=== PATIENT | female | born 1965 | race Caucasian/White ===

== ENCOUNTER 2017-08-12 12:15 | Emergency (ER) | payer MEDICARE ==
[~2017-08-12] VITALS: Ht 167.6 cm; Wt 77.1 kg
--- NOTE | 2017-08-12 14:01 | Diagnostic Imaging Report ---
PROCEDURE:X-RAY RIGHT ANKLE, COMPLETE TECHNIQUE: INDICATION: COMPARISON:None. FINDINGS: No acute fracture or dislocation of the right ankle. Soft tissue calcifications, overlying anterior to the tibia, on lateral view, are likely phleboliths. More coarse calcifications posterior to the ankle, may represent Os trigonum (the more superior calcification could represent Achilles tendon calcification). CONCLUSION: No acute fracture or dislocation of the right ankle. Dictated by: Guzman Bang M.D. on 08/12/2017 at 14:03 Electronically approved by: Guzman Bang M.D. on 08/12/2017 at 14:03
--- NOTE | 2017-08-12 14:04 | Diagnostic Imaging Report ---
PROCEDURE:X-RAY RIGHT LOWER LEG COMPARISON:None. INDICATIONS:RIGHT ANKLE PAIN FINDINGS: There are no fractures, dislocations, lytic or blastic lesions. The bones are well-mineralized. The soft-tissues are unremarkable except for distal leg calcifications, which were described on the same day ankle xray. CONCLUSION: No acute fracture or dislocation of the right tibia/fibula. Dictated by: Guzman Bang M.D. on 08/12/2017 at 14:07 Electronically approved by: Guzman Bang M.D. on 08/12/2017 at 14:07
[2017-08-12] MEDS ORDERED: IBUPROFEN 400 MG TAB PO ONE (15:45)
--- NOTE | 2017-08-12 17:03 | Diagnostic Imaging Report ---
PROCEDURE:X-RAY RIGHT FOOT, COMPLETE COMPARISON:None. INDICATIONS:RIGHT ANKLE PAIN, NO TRAUMA FINDINGS: There are no fractures, dislocations, lytic or blastic lesions. The bones are well-mineralized. Dorsal forefoot soft tissue swelling. Incidentally seen os trigonum. CONCLUSION: No acute fracture or dislocation of the right foot. Dictated by: Guzman aBng M.D. on 08/12/2017 at 17:06 Electronically approved by: Guzman Bang M.D. on 08/12/2017 at 17:06
== END 2017-08-12 18:31 | disposition home or self-care (01) ==
LOC: ER 12:15
DX: S93.401A Sprain of unspecified ligament of right ankle, initial encounter (principal); M25.561 Pain in right knee; S83.91XA Sprain of unspecified site of right knee, initial encounter; X50.1XXA Overexertion from prolonged static or awkward postures, initial encounter; Y92.218 Other school as the place of occurrence of the external cause
CPT/HCPCS: 99283

== ENCOUNTER 2020-01-09 15:21 | Inpatient (IN) | payer MEDICARE ==
[~2020-01-09] VITALS: Ht 167.6 cm; Wt 77.1 kg
[~2020-01-09 15:21] MED LIST: DEXAMETHASONE SOD PHOS INJ 4 MG/ML VIAL ONE; EPHEDRINE SULFATE INJ 50 MG/ML VIAL ONE; FENTANYL CITRATE/PF 100MCG/2 ML INJ ONE; LIDOCAINE HCL 2% LOCAL INJ 5 ML SDV VIAL INJ ONE; METOCLOPRAMIDE HCL 10 MG/2ML VIAL ONE; MIDAZOLAM HCL 2 MG/2 ML VIAL ONE; ONDANSETRON HCL INJ 2MG/ML 2ML 2 MG/ML VIAL ONE; PROPOFOL IV EMULSION 10 MG/ML 20 ML VIAL ONE; ROCURONIUM BROMIDE 10 MG/ML 5ML VIAL IV ONE; SEVOFLURANE INHAL SOLN 250 ML PEN BTL ONE; SUCCINYLCHOLINE CHLORIDE 20 MG/ML 10ML VIAL ONE
--- OUTSIDE RECORDS SUMMARY | 2020-01-09 16:08 | XMS REPORT | Continuity of Care Document ---
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) Active Problem 03/16/2019 Medical Group Overweight (finding) Active Problem 03/16/2019 Medical [facility] Patient encounter status (finding) Active Problem [facility] Group Screening status (finding) Act deb [facility] [place] Urge incontinence of urine (finding) Active Problem [facility] Urinary incontinence (finding) Resolved Problem Medical [facility] [place] Vaccination required (finding) Active Problem [facility] [place] Weight decreased (finding) Res olved Problem [facility] [place] Hearing loss (finding) Active Problem 10/19/2018 [facility] [place] 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 Problem 10/19/2018 [facility] [place] Body mass index index 25-29 - overweight (finding) Active Problem 05/07/2018 [facility] [place] Impacted cerumen (disorder) Ac tive Problem Medical [facility] Tuberculosis screening status (finding) Active Problem 05/07/2018 [facility] [place] Occult blood in stools (disorder) Active Problem [facility] Medications Medication Details Route Status Patient Instructions Ordering Provider Order Date Source Depo-Provera 400 mg, IM, 0 Ref ill(s) Active 09/16/2018 [facility] Surfak Stool Softener 240 mg, PO, Daily, 0 Refill(s) Active 10/15/2017 [facility] cranberry oral tablet 2 tabs, BID, 0 Refill(s) Active 10/15/2017 [facility] Vitamin C 500 mg oral tablet 5 00 mg = 1 tab, PO, Daily, # 30 tab, 0 Refill(s) Active 10/15/2017 [facility] Allergies, Adverse Reactions, Alerts Substance Category Reaction Severity Reaction type Status Date Reported Comments Source No Known Medication Allergies Assertion Drug aller gy Medical Group Immunizations Immunization Date Given Site Status Last Updated Comments Source influenza virus vaccine, inactivated 04/25/2016 Left Deltoid completed [facility] [place] influenza virus vaccine, inactivated 12/21/2014 Left Deltoid completed [facility] [place] Hx influenza vaccine-unspecified<sup>5</sup> 02/16/2014 Right Deltoid completed GE Result Comment: fluzone (qu adrivalent) no preservative (>3 yrs.) [[id number]]. Migrated from OBS ; Data migrated from [employer] on 04/26/2015. Medical Group Hx influenza vaccine-unspecified<sup>2</sup> 02/16/2014 Right Deltoid completed GE Result Comment: fluzone (quadrivalent) no preservative (>3 yrs.) [[id number]]. Migrated from OBS ; Data migrated from [employer] on 04/26/2015. [facility] [place] influenza virus vaccine, inactivated<sup>1</sup> 01/01/2013 Right Deltoid completed GE Result Comment: fluzone (>3 yrs.) [[id number]]. Migrated from OBS ; Data migrated from [employer] on 04/26/2015. Medical Group influenza virus vaccine, inactivated<sup>3</sup> 01/01/2013 Right Deltoid completed GE Result Comment: fluzone (>3 yrs.) [[id number]]. Migrated from OBS ; Data migrated from [employer] on 04/26/2015. [facility] [place] influenza virus vaccine, inactivated<sup>2</sup> 02/12/2011 completed GE Result Comment: fluvirin pr eservative free (>3 yrs.) [ctm178]. Migrated from OBS ; Data migrated from [employer] on 04/26/2015. Medical Group influenza virus vaccine, inactivated<sup>4</sup> 02/12/2011 completed GE Result Comment: fluvirin pr eservative free (>3 yrs.) [ilr740]. Migrated from OBS ; Data migrated from [employer] on 04/26/2015. [facility] [place] influenza virus vaccine, inactivated<sup>3</sup> 12/21/2009 completed GE Result Comment: fluvirin pr eservative free (>3 yrs.) [[id number]]. Migrated from OBS ; Data migrated from [employer] on 04/26/2015. Medical Group influenza virus vaccine, inactivated<sup>5</sup> 12/21/2009 completed GE Result Comment: fluvirin pr eservative free (>3 yrs.) [[id number]]. Migrated from OBS ; Data migrated from [employer] on 04/26/2015. [facility] influenza virus vaccine, inactivated<sup>4</sup> 02/14/2009 completed GE Result Comment: fluvirin pr eservative free (>3 yrs.) [stw058]. Migrated from OBS ; Data migrated from [employer] on 04/26/2015. Medical Group influenza virus vaccine, inactivated<sup>6</sup> 02/14/2009 completed GE Result Comment: fluvirin pr eservative free (>3 yrs.) [[id number]]. Migrated from OBS ; Data migrated from [employer] on 04/26/2015. [facility] diphtheria/pertussis, acel/tetanus adult<sup>6</sup> 10/11/2008 completed GE Result Comment: boostrix [c vx115]. Migrated from OBS ; Data migrated from [employer] on 04/26/2015. Medical Group diphtheria/pertussis, acel/tetanus adult<sup>1</sup> 10/11/2008 completed GE Result Comment: boostrix [c vx115]. Migrated from OBS ; Data migrated from [employer] on 04/26/2015. [facility] [place] Results No Data Provided for This Section Pathology Reports No Data Provided for This Section Diagnostic Reports Report Value Date Source Chest 2 views DX EXAM: Chest 2 views DX HISTORY: screening pulmonary tb COMPARISON: None The heart size is normal and the lungs are clear. There is no pleural effusion or pneumothorax. No gross skeletal abnormality. IMPRESSION: No acute abnormality. 04/30/2016 [facility] [place] Consultation Notes No Data Provided for This Section Discharge Summaries No Data Provided for This Section History and Physicals No Data Provided for This Section Vital Signs Vital Sign Value Date Comments Source BMI Calculated 27.9 10/27/2018 Medical Group Weight 78.409 10/27/2018 Medical Group Height 167.64 cm 10/27/2018 Medical Group Heart Rate 81 10/27/2018 Medical Group Systolic (mm Hg) 130 10/27/2018 Medical Group Diastolic (mm Hg) 83 10/27/2018 Medical Group Temperature Oral (F) 97.9 F 10/27/2018 Medical Group Respitory Rate 16 10/27/2018 Medical Group BMI Calculated 27.42 09/16/2018 [facility] Weight 77.045 09/16/2018 [facility] Height 167.64 cm 09/16/2018 [facility] Temperature Oral (F) 96.8 F 09/16/2018 Medical Group Respitory Rate 16 09/16/2018 Medical Group Heart Rate 97 09/16/2018 [facility] Group Systolic (mm Hg) 122 09/16/2018 Medical Group Diastolic (mm Hg) 77 09/16/2018 Medical Group BMI Calculated 28.22 10/15/2017 Medical Group Height 167.64 cm 10/15/2017 [facility] Group Heart Rate 68 10/15/2017 Medical Group Respitory Rate 16 10/15/2017 [facility] Group Systolic (mm Hg) 128 10/15/2017 Medical Group Diastolic (mm Hg) 86 10/15/2017 [facility] Group Temperature Oral (F) 96.6 F 10/15/2017 [facility] Group Weight 79.318 10/15/2017 Medical Group Encounters Location Location Details Encounter Type Encounter Number Reason For Visit Attending Provider ADM Date DC Date Status Source Outpatient [id number] MARIZOL SHAW 01/19/[address] [facility] Outpatient [id number] MARIZOL SHAW 03/11/2015 Active [facility] Outpatient [id number] MARIZOL SHAW 04/25/2016 Active [facility] [place] [facility] [id number] Marizol Shaw 04/30/2016 05/01/2016 [facility] [place] Outpatient [id number] MARIZOL SHAW 12/31/2016 Active [facility] Outpatient [id number] MARIZOL SHAW 10/15/2017 [facility] Primary Care [facility] Outpatient [id number] Marizol Shaw 10/15/2017 10/16/2017 Medical [facility] Primary [facility] Phone Message [id number] 10/17/2017 10/19/2017 Medical [facility] Outpatient [id number] Marizol Shaw 09/16/2018 [facility] Primary Care [facility] Outpatient [id number] Marizol Shaw 09/16/2018 09/17/2018 Medical [facility] Primary [facility] Phone Message [id number] 10/15/2018 10/17/2018 Medical [facility] Outpatient [id number] Marizol Shaw 10/27/2018 [facility] Primary Care [facility] Outpatient [id number] Marizol Shaw 10/27/2018 10/28/2018 Medical [facility] Primary [facility] Between Visit [id number] 10/29/2018 10/30/2018 Medical [facility] Primary [facility] Between Visit [id number] 10/29/2018 10/30/2018 Medical [facility] Primary Care [facility] Phone Message [id number] 03/13/2019 03/15/2019 Medical [facility] Procedures Procedure Code Date Perfomer Comments Source Screening mammography of bilateral breasts<sup>1</sup> [id number] 11/14/2018 Patient was instructed to bring all medi cations that he takes to the office so we can update his list. Medical Group Removal impacted cerumen using irrigatio n/lavage, unilateral [id number] 10/15/2017 Medical [facility] Assessment and Plan No Data Provided for This Section Plan of Care No Data Provided for This Section Social History Social History Date Source Social History TypeResponse Substance Abuse Use: None. Exercise 1 Employment/School Work/School description: Disabled. Alcohol Never Smoking Status Never smoker; Exposure to Tobacco Smoke None; Cigarette Smoking Last 365 Days No; Reg Smoking Cessation Counseling No 1none 12/21/2014 ROXY Ferrer Social History TypeResponse Alcohol Never Employment/School Work/School description: Disabled. Exercise Exercise type: none. Substance Abuse Use: None. Smoking Status Never smoker; Exposure to Tobacco Smoke None; Cigarette Smoking Last 365 Days No; Reg Smoking Cessation Counseling No entered on: 10/27/18 12/21/2014 Medical Group Family History No Data Provided for This Section Advance Directives No Data Provided for This Section Functional Status No Data Provided for This Section
--- OUTSIDE RECORDS SUMMARY | 2020-01-09 16:09 | XMS REPORT | Continuity of Care Document ---
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 [facility] [place] Problem Active 2013-01-01 00:00:00 2018-10-19 00:05:13 Jace Hernandez Urinary incontinence (finding) Urinary incontinence (finding) Resolved Problem 03/16/2019 [facility] [place] Problem Resolved 2019-03-16 23:32:24 Kamran Hernandez Weight decreased (finding) Roly ght decreased (finding) Resolved Problem 03/16/2019 [facility] [place] Problem Resolved 2019-03-16 23:32:24 Jace Hernandez Breast neoplasm screening status (finding) Breast neoplasm screening status (finding) Active Problem 03/16/2019 Medical [facility] [place] Problem Active 2019-03-16 23:32:24 [facility] Medical examinations/reports status (finding) Medical examinations/reports status (finding) Active Problem 03/16/2019 Medical [facility] [place] Problem Active 2019-03-16 23:32:24 [facility] David 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) Active Problem 03/16/2019 Medical Group Problem Active 2019-03-16 23:32:24 [facility] Overweight (finding) Over weight (finding) Active Problem 03/16/2019 Medical Group Problem Active 2019-03-16 [facility]:32:[facility] status (finding) Patient encounter status (finding) Active Problem 03/16/2019 [facility] Group Problem Active 2019-03-16 23:32:24 [facility] David Screening status (finding) Scr eening status (finding) Active Problem 03/16/2019 [facility], [facility] [place] Problem Ac tive 2019-03-16 23:32:24 [facility] vanessa Urge incontinence of urine (finding) Urge incontinence of urine (finding) Active Problem 03/16/2019 Medical Group Problem Active 2019-03-16 23:32:24 [facility] David Vaccination required (finding) Vaccination required (finding) Active Problem 03/16/2019 [facility] [place] Problem Active 2019-03-16 23:32:24 Kamran Hernandez Hearing loss (finding) Hear ing loss (finding) Active Problem 10/19/2018 [facility] [place] Problem Active 2018-10-19 00:05:13 Jace Hernandez Contracture of joint of hand (disorder) 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 Problem 10/19/2018 Medical [facility] [place] Problem Active 2018-10-19 00:05:13 Ye Hernandez Body mass index index 25-29 - overweight (finding) Body mass index index 25-29 - overweight (finding) Active Problem 05/07/2018 [facility], [facility] [place] Problem Active 2018-05-07 15: 18:54 [facility] David Impacted cerumen (disorder) Im pacted cerumen (disorder) Active Problem 05/07/2018 Medical Group Problem Active 2018-05-07 15:18:54 Jace Hernandez Tuberculosis screening status (finding) Tuberculosis screening status (finding) Active Problem 05/07/2018 Medical Group, ROXY Salcedo Problem Active 2018-05-07 15:18:54 Ye Hernandez Occult blood in stools (disorder) Occult blood in stools (disorder) Active Problem 03/16/2019 Medical Group Problem Active 2019-03-16 23:32:24 Jace Hernandez Allergies, Adverse Reactions, Alerts Allergy Name Allergy Type Status Severity Reaction(s) Onset Date Inacti ve Date Treating Clinician Comments Source No Known Contrast Allergies DA Active U 2007-06-27 00:00: 00 [facility] No Known Drug Allergies DA Active U 2007-06-27 00:00:00 [facility] No Known Food Allergies DA Active U 2007-06-27 00:00:00 [facility] No Known Other Allergies DA Active U 2007-06-27 00:00:00 [facility] No Known Medication Allergies No Known Medication Allergies Active Jace Hernandez Social History Social Habit Start Date Stop Date Quantity Comments Source Social History 2014-12-21 21:57:09 2014-12-21 21:57:09 Jace Hernandez Medications Ordered Medication Name Filled Medication Name Start Date Stop Da te Current Medication? Ordering Clinician Indication Dosage Frequency Signature (SIG) Comments Components Source Depo-Provera 2018-09-16 16:21:00 Yes 400 mg, IM, 0 Refill(s) Jace Hernandez Surfak Stool Softener 2017-10-15 16:20:00 Yes 240 mg, PO, Daily, 0 Refill(s) Jace Hernandez cranberry oral tablet 2017-10-15 16:20:00 Yes 2 tabs, BID, 0 Refill(s) Jace Hernandez Vitamin C 500 mg oral tablet 2017-10-15 16:20:00 Yes 500 mg = 1 tab, PO, Daily, # 30 tab, 0 Refill(s) Kimberly Hernandez Vital Signs Vital Name Observation Time Observation Value Comments Source BMI Calculated 2018-10-27 13:07:00 Gregory Shah Weight 2018-10-27 13:07:00 Jace Hernandez Height 2018-10-27 13:07:00 167.64 cm Jace Hernandez Heart Rate 2018-10-27 13:07:00 Jace Hernandez Systolic (mm Hg) 2018-10-27 13:07:00 Ye rial [facility] Diastolic (mm Hg) 2018-10-27 13:07:00 [facility] Temperature Oral (F) 2018-10-27 13:07:00 97.9 F [facility] Respitory Rate 2018-10-27 13:07:00 [facility] BMI Calculated 2018-09-16 16:17:00 [facility] Weight 2018-09-16 16:17:00 [facility] Height 2018-09-16 16:17:00 167.64 cm [facility] Temperature Oral (F) 2018-09-16 16:17:00 96.8 F [facility] Respitory Rate 2018-09-16 16:17:00 [facility] Heart Rate 2018-09-16 16:17:00 [facility] Systolic (mm Hg) 2018-09-16 16:17:00 Ye rial [facility] Diastolic (mm Hg) 2018-09-16 16:17:00 Mem [facility] BMI Calculated 2017-10-15 16:07:00 [facility] Height 2017-10-15 16:07:00 167.64 cm [facility] Heart Rate 2017-10-15 16:07:00 [facility] Respitory Rate 2017-10-15 16:07:00 [facility] Systolic (mm Hg) 2017-10-15 16:07:00 Ye rial [facility] Diastolic (mm Hg) 2017-10-15 16:07:00 Mem orial [facility] Temperature Oral (F) 2017-10-15 16:07:00 96.6 F [facility] Weight 2017-10-15 16:07:00 [facility] Procedures Procedure Date / Time Performed Performing Clinician [facility] e Screening mammography of bilateral breasts<sup>1</sup> 2018-10-24 3 05:00:00 [facility] Removal impacted cerumen using irrigation/lavage, unil ateral 2017-10-15 17:16:00 [facility] Encounters Start Date/Time End Date/Time Encounter Type Admission Type Att[facility] Care Department Encounter ID Source 2019-03-13 08:27:51 2019-03-14 23:59:59 Outpatient [facility] [id number] 2018-10-29 10:26:51 2018-10-30 10:26:51 Outpatient [facility] [id number] 2018-10-29 10:26:26 2018-10-30 10:26:26 Outpatient [facility] [id number] 2018-10-27 08:15:00 2018-10-27 23:59:59 Outpatient S Marizol goelacion [facility] MG [id number] 2018-10-15 10:18:09 2018-10-16 23:59:59 Outpatient [facility] [id number] 2018-09-16 11:00:00 2018-09-16 23:59:59 Outpatient S alcedoMarizol Salvacion [facility] MG [id number] 2017-10-17 12:39:00 2017-10-18 23:59:59 Outpatient [facility] MG [id number] 2017-10-15 11:00:00 2017-10-15 23:59:59 Outpatient S Marizol goelacion [facility] [id number] 2017-10-15 11:00:00 2017-10-15 23:59:59 Outpatient S Marizol ogel [facility] [id number] 2017-08-12 12:15:00 2017-08-12 18:31:00 Departed Emergency Room 1 GREG APPLE [facility] [id number] [facility] 2016-04-30 12:59:00 2016-04-30 23:59:00 Outpatient S Marizol goel [facility] [id number] Results Test Description Test Time Test Comments Results Result Comments Source FOOT RIGHT [place] [address] Patient Name: ANJEL PATTERSON MR #: [id number] : 1965 Age/Sex: 51/F Req #: [id number] Adm Physician: Ordered by: GREG APPLE MD Report #: [id number] Location: ER Room/Bed: Procedure: DX/FOOT RIGHT COMPLETE Exam Date: 08/12/17 Exam Time: 1615 REPORT STATUS: Signed PROCEDURE: X-RAY RIGHT FOOT, COMPLETE COMPARISON: None. INDICATIONS: RIGHT ANKLE PAIN, NO TRAUMA FINDINGS: There are no fractures, dislocations, lytic or blastic lesions. The bones are well-mineralized. Dorsal forefoot soft tissue swelling. Incidentally seen os trigonum. CONCLUSION: No acute fracture or dislocation of the right foot. Dictated by: Guzman Jin M.D. on 08/12/2017 at 17:06 Electronically approved by: Guzman Jin M.D. on 08/12/2017 at 17:06 Dictated By: GUZMAN JIN MD 05 Transcribed By: AP on 08/12/171705 COPY TO: GREG APPLE MD ANKLE 3 + VIEWS RIGHT [place] [address] Patient Name: ANJEL PATTERSON MR #: [id number] : 1965 Age/Sex: 51/F Req #: [id number] Adm Physician: Ordered by: GREG APPLE MD Report #: [id number] Location: ER Room/Bed: Procedure: DX/ANKLE 3 + VIEWS RIGHT Exam Date: 08/12/17 Exam Time: 1330 REPORT STATUS: Signed PROCEDURE: X-RAY RIGHT ANKLE, COMPLETE TECHNIQUE: INDICATION: COMPARISON: None. FINDINGS: No acute fracture or dislocation of the right ankle. Soft tissue calcifications, overlying anterior to the tibia, on lateral view, are likely phleboliths. More coarse calcifications posterior to the ankle, may represent Os trigonum (the more superior calcification could represent Achilles tendon calcification). CONCLUSION: No acute fracture or dislocation of the right ankle. Dictated by: Guzman Jin M.D. on 08/12/2017 at 14:03 Electronically approved by: Guzman Jin M.D. on 08/12/2017 at 14:03 Dictated By: GUZMAN JIN MD 02 Transcribed By: AP on 08/12/171402 COPY TO: GREG APPLE MD LOWER LEG RIGHT [place] [address] Patient Name: ANJEL PATTERSON MR #: [id number] : 1965 Age/Sex: 51/F Req #: [id number] [facility] Physician: Ordered by: GREG APPLE MD Report #: [id number] Location: ER Room/Bed: Procedure: [id number] DX/LOWER LEG RIGHT Exam Date: 08/12/17 Exam Time: 1329 REPORT STATUS: Signed PROCEDURE: X-RAY RIGHT LOWER LEG COMPARISON: None. INDICATIONS: RIGHT ANKLE PAIN FINDINGS: There are no fractures, dislocations, lytic or blastic lesions. The bones are well-mineralized. The soft-tissues are unremarkable except for distal leg calcifications, which were described on the same day ankle xray. CONCLUSION: No acute fracture or dislocation of the right tibia/fibula. Dictated by: Guzman Jin M.D. on 08/12/2017 at 14:07 Electronically approved by: Guzman Jin M.D. on 08/12/2017 at 14:07 Dictated By: GUZMAN JIN MD 06 Transcribed By: AP on 08/12/171406 COPY TO: GREG APPLE MD
[2020-01-09] MEDS ORDERED: SODIUM CHLORIDE 0.9% 1000ML 1,000 ML IV STA (16:37)
[2020-01-09] MEDS ORDERED: PANTOPRAZOLE 40 MG 10ML VIAL IV ONE (16:37)
[2020-01-09 17:12] LABS: BASOPHILS # (AUTO) 0.1 (0.0-0.1); BASOPHILS % 0.5 % (0.0-1.0); EOSINOPHILS # (AUTO) 0.3 (0.0-0.4); EOSINOPHILS % 1.4 % (0.0-6.0); HEMATOCRIT 45.3 % (34.2-44.1); LYMPHOCYTES % 9.3 % (18.0-39.1); MEAN CORPUSCULAR HEMOGLOBIN 29.1 pg (28-32); MEAN CORPUSCULAR HGB CONC 33.1 g/dL (31-35); MEAN CORPUSCULAR VOLUME 87.8 fL (81-99); MONOCYTES # (AUTO) 1.5 (0.2-0.8); MONOCYTES % 6.8 % (4.4-11.3); NEUTROPHILS # (AUTO) 17.6 (2.1-6.9); NEUTROPHILS % 81.6 % (38.7-80.0); PLATELET COUNT 430 x10e3/uL (140-360); RED BLOOD COUNT 5.16 x10e6/uL (3.6-5.1); RED CELL DISTRIBUTION WIDTH 12.8 % (11.7-14.4)
[2020-01-09 17:24] LABS: INR 0.92; PROTHROMBIN TIME 12.8 seconds (11.9-14.5)
[2020-01-09 17:32] LABS: ALANINE AMINOTRANSFERASE 58 IU/L (0-55); ALBUMIN 4.4 g/dL (3.5-5.0); ALBUMIN/GLOBULIN RATIO 1.2 (0.8-2.0); ALKALINE PHOSPHATASE 91 IU/L (40-150); ANION GAP 17.8 mmol/L (8-16); BLOOD UREA NITROGEN 10 mg/dL (7-26); BUN/CREATININE RATIO 11 (6-25); CALCIUM 9.7 mg/dL (8.4-10.2); CARBON DIOXIDE 23 mmol/L (22-29); CHLORIDE 104 mmol/L (98-107); CREATINE KINASE 72 IU/L (29-168); CREATININE, SERUM 0.88 mg/dL (0.57-1.11); EST GLOMERULAR FILTRATION RATE > 60 ML/MIN (60-); GLUCOSE 162 mg/dL (74-118); POTASSIUM 3.8 mmol/L (3.5-5.1); SODIUM 141 mmol/L (136-145)
--- NOTE | 2020-01-09 17:32 | Diagnostic Imaging Report ---
EXAMINATION: CHEST SINGLE (PORTABLE) INDICATION: CP, ? ESOPH FB COMPARISON: None FINDINGS: TUBES and LINES: None. LUNGS: Lungs are well inflated. There is no evidence of pneumonia or pulmonary edema. Minimal patchy bibasilar opacities, likely atelectasis. PLEURA: No pleural effusion or pneumothorax. HEART AND MEDIASTINUM: The cardiomediastinal silhouette is unremarkable. There is a 1.2 cm linear radiodensity overlying the left upper mediastinum. Atherosclerotic vascular calcifications. BONES AND SOFT TISSUES: No acute osseous lesion. Soft tissues are unremarkable. UPPER ABDOMEN: No free air under the diaphragm. IMPRESSION: A 1.2 cm linear radiodensity overlying the left upper mediastinum may represent vascular atherosclerotic calcification versus radiodense foreign body. Suggest chest CT for further evaluation. Signed by: Dr. Yoselin Casey MD on 01/09/2020 5:29 PM
[2020-01-09] MEDS ORDERED: SODIUM CHLORIDE 0.9% 1000ML 1,000 ML IV SCH (17:45)
[2020-01-09] MEDS ORDERED: ONDANSETRON HCL INJ 2MG/ML 2ML 2 MG/ML VIAL IV PRN (17:45)
[2020-01-09] MEDS ORDERED: PIPER-TAZ 3.375 GM 50 ML ONE (17:48)
--- NOTE | 2020-01-09 17:50 | NUR ---
overlock operator at bedside questioning COVID swab as a rapid for surger as a standard of care. was informed by senior housekeeper that patient would be treated as a PUI and that rapid was declined by lab at [facility].
[2020-01-09] MEDS: PIPER-TAZ 3.375 GM 50 ML IV SCH (17:52)
--- NOTE | 2020-01-09 17:55 | NUR ---
SPOKE WITH LUCIA (OPHTHALMIC TECHNICIAN) WHO WILL SPEAK TO ZAID (LAB), REGARDING RUNNING RAPID COVID, REQUESTED BY ANESTHESIOLOGY
--- NOTE | 2020-01-09 18:14 | Emergency Department Note ---
History of Present Illnes History of Present Illness Chief Complaint: Abdominal Complaints History of Present Illness This is a 54 year old female PATIENT MENTALLY CHALLENGED AND DIFFICULT TO GET INFO FROM HER 3 DAYS AGO ATE A PIECE OF HOT DOG AND BEGAN GAGGING INTERMITTENTLY. POSITIVE NAUSEA. DRY HEAVES. FAMILY MEMBER FEELS LIKE SHE HAS SOME STILL STUCK IN HER THROAT. 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 Any updates have been documented here. Past Medical History Recent Fever: No Clinical Suspicion of Infectio: No New/Unexplained Change in Ment: No Past Medical History: Seizure Disorder Other Medical History: right spastic hemopalegic MENTALLY CHALLENGED Other Surgery: R foot and R hand Social History Smoking Cessation: Never Smoker Counseling Performed: No Alcohol Use: None Any Illegal Drug Use: No TB Exposure/Symptoms: No Physically hurt or threatened: No Family History Family history of heart diseas: No Other Last Tetanus: utd Any Pre-Existing Lines (PICC,: No Review of Systems Review of Systems Constitutional: Reports no symptoms EENTM: Reports no symptoms Cardiovascular: Reports no symptoms Respiratory: Reports no symptoms Gastrointestinal: Reports as per HPI Genitourinary: Reports no symptoms Musculoskeletal: Reports no symptoms Integumentary: Reports no symptoms Neurological: Reports no symptoms Psychological: Reports no symptoms Endocrine: Reports no symptoms Hematological/Lymphatic: Reports no symptoms Physical Exam Related Data Allergies: Coded Allergies: No Known Allergies (Unverified , 01/09/20) Triage Vital Signs Vital Signs Date Time Temp Pulse Resp B/P (MAP) Pulse Ox O2 Delivery O2 Flow Rate FiO2 01/09/20 15:28 98.6 100 18 164/83 99 Room Air Vital signs reviewed: Yes Physical Exam CONSTITUTIONAL Constitutional: Present well-developed, Present well-nourished HENT HENT: Present normocephalic, Present atraumatic, Present oropharynx clear/moist, Present nose normal HENT L/R: Present left ext ear normal, Present right ext ear normal EYES Eyes: Reports PERRL, Reports conjunctivae normal NECK Neck: Present ROM normal PULMONARY Pulmonary: Present effort normal, Present breath sounds normal CARDIOVASCULAR Cardiovascular: Present regular rhythm, Present heart sounds normal, Present capillary refill normal, Present normal rate GASTROINTESTINAL Abdominal: Present soft, Present nontender, Present bowel sounds normal GENITOURINARY Genitourinary: Present exam deferred SKIN Skin: Present warm, Present dry MUSCULOSKELETAL Musculoskeletal: Present ROM normal NEUROLOGICAL Neurological: Present alert, Present no gross motor or sensory deficits, Present other (ORIENTED TO NAME, ANSWERS SIMPLE QUESTIONS) PSYCHOLOGICAL Psychological: Present mood/affect normal, Present judgement normal Results Laboratory Result Diagram: 01/09/20 1652 01/09/202 Laboratory Laboratory Tests Test 01/09/20 17:50 01/09/20 16:52 White Blood Count 21.51 x10e3/uL (4.8-10.8) Red Blood Count 5.16 x10e6/uL (3.6-5.1) Hemoglobin 15.0 g/dL (12.0-16.0) Hematocrit 45.3 % (34.2-44.1) Mean Corpuscular Volume 87.8 fL (81-99) Mean Corpuscular Hemoglobin 29.1 pg (28-32) Mean Corpuscular Hemoglobin Concent 33.1 g/dL (31-35) Red Cell Distribution Width 12.8 % (11.7-14.4) Platelet Count 430 x10e3/uL (140-360) Neutrophils (%) (Auto) 81.6 % (38.7-80.0) Lymphocytes (%) (Auto) 9.3 % (18.0-39.1) Monocytes (%) (Auto) 6.8 % (4.4-11.3) Eosinophils (%) (Auto) 1.4 % (0.0-6.0) Basophils (%) (Auto) 0.5 % (0.0-1.0) Neutrophils # (Auto) 17.6 (2.1-6.9) Lymphocytes # (Auto) 2.0 (1.0-3.2) Monocytes # (Auto) 1.5 (0.2-0.8) Eosinophils # (Auto) 0.3 (0.0-0.4) Basophils # (Auto) 0.1 (0.0-0.1) Absolute Immature Granulocyte (auto 0.08 x10e3/uL (0-0.1) Prothrombin Time 12.8 seconds (11.9-14.5) Prothromb Time International Ratio 0.92 Activated Partial Thromboplast Time 33.0 seconds (23.8-35.5) Sodium Level 141 mmol/L (136-145) Potassium Level 3.8 mmol/L (3.5-5.1) Chloride Level 104 mmol/L (98-107) Carbon Dioxide Level 23 mmol/L (22-29) Anion Gap 17.8 mmol/L (8-16) Blood Urea Nitrogen 10 mg/dL (7-26) Creatinine 0.88 mg/dL (0.57-1.11) Estimat Glomerular Filtration Rate > 60 ML/MIN (60-) BUN/Creatinine Ratio 11 (6-25) Glucose Level 162 mg/dL (74-118) Calcium Level 9.7 mg/dL (8.4-10.2) Total Bilirubin 0.7 mg/dL (0.2-1.2) Aspartate Amino Transf (AST/SGOT) 38 IU/L (5-34) Alanine Aminotransferase (ALT/SGPT) 58 IU/L (0-55) Alkaline Phosphatase 91 IU/L (40-150) Creatine Kinase 72 IU/L (29-168) Creatine Kinase MB 1.00 ng/mL (0-5.0) Troponin I < 0.001 ng/mL (0-0.300) Total Protein 8.2 g/dL (6.5-8.1) Albumin 4.4 g/dL (3.5-5.0) Globulin 3.8 g/dL (2.3-3.5) Albumin/Globulin Ratio 1.2 (0.8-2.0) Lab results reviewed: Yes Imaging Imaging results reviewed: Yes Impressions EXAMINATION: CHEST SINGLE (PORTABLE) INDICATION: CP, ? ESOPH FB COMPARISON: None FINDINGS: TUBES and LINES: None. LUNGS: Lungs are well inflated. There is no evidence of pneumonia or pulmonary edema. Minimal patchy bibasilar opacities, likely atelectasis. PLEURA: No pleural effusion or pneumothorax. HEART AND MEDIASTINUM: The cardiomediastinal silhouette is unremarkable. There is a 1.2 cm linear radiodensity overlying the left upper mediastinum. Atherosclerotic vascular calcifications. BONES AND SOFT TISSUES: No acute osseous lesion. Soft tissues are unremarkable. UPPER ABDOMEN: No free air under the diaphragm. IMPRESSION: A 1.2 cm linear radiodensity overlying the left upper mediastinum may represent vascular atherosclerotic calcification versus radiodense foreign body. Suggest chest CT for further evaluation. Signed by: Dr. Yoselin Casey MD on 01/09/2020 5:29 PM Procedures 12 Lead ECG Interpretation ECG Interpretation : ECG: ECG 1 Motion Picture Operator: Interpreted by ED physician Date: Jan 09, 2020 Time: 16:54 Rhythm: sinus tachycardia Rate: tachycardia BPM: 122 QRS axis: normal ST segments normal: Yes T waves normal: Yes Clinical Impression: abnormal ECG Additional Comments POOR RWP Assessment & Plan Medical Decision Making MDM CLINICALLY SOUNDS LIKE ESOPH FB BUT PT WITH MR AND CANNOT ELOBORATE ON SX'S - CHECK CBC, CHEM, ECG, CARDIACS, UA/CX, CXR - EVAL FOR ESOPH FB, STEMI/NSTEMI, ELECTROLYTE ABNL, DEHYDRATION Reassessment Reassessment I CALLED DR Andres ALEGRE - WANTS TO TAKE PT FOR EGD. WILL ADMIT TO S SIS COVERING FOR PCP JOB. LEUKOCYTOSIS WAS UNEXPECTED - WILL GET BLOOD CX'S, UA/CX - GIVE ZOSYN Assessment & Plan Final Impression: (1) Leukocytosis (2) Impacted esophageal foreign body Depart Disposition: ADMITTED Last Vital Signs Date Time Temp Pulse Resp B/P (MAP) Pulse Ox O2 Delivery O2 Flow Rate FiO2 01/09/20 15:28 98.6 100 18 164/83 99 Room Air Medications in the ED Pantoprazole Sodium 40 mg ONCE ONCE IV Last administered on 01/09/20at 16:57; Admin Dose 40 MG; Start 01/09/20 at 16:37; Stop 01/09/20 at 16:42; Status DC Sodium Chloride 1,000 ml @ 0 mls/hr Q0M STAT IV Last administered on 01/09/20at 16:57; Admin Dose 1,000 MLS/HR; Start 01/09/20 at 16:37; Stop 01/09/20 at 16:40; Status DC DILMA BENAVIDES MD Jan 09, 2020 18:14
[2020-01-09] MEDS ORDERED: PANTOPRAZOLE 40 MG 10ML VIAL ONE (19:23)
[2020-01-09] MEDS ORDERED: PANTOPRAZOLE INJ 40 MG in SODIUM CHLORIDE 0.9% 50ML 50 ML IV SCH ×2 (19:45→20:30)
[2020-01-09 19:50] VITALS: BP 139/78
--- NOTE | 2020-01-09 20:05 | Operative Report ---
DATE OF PROCEDURE: 01/09/2020 SURGEON: Nakul Vergara MD PROCEDURE: EGD with foreign body removal, polypectomy, and biopsies. INDICATIONS FOR PROCEDURE: Foreign body in esophagus. MEDICATIONS: The patient was done under general endotracheal anesthesia, please see anesthesiologist's note. DESCRIPTION OF PROCEDURE: With the patient in the supine position, after induction of adequate general endotracheal anesthesia, a flexible fiberoptic Olympus gastroscope was introduced into the esophagus under direct visualization without any difficulty. A large meat bolus was noted to be lodged in the distal esophagus. It was subsequently removed with a combination of polypectomy snare, Alfredo Net, and giant biopsy forceps. The distal esophagus was ulcerated and the scope was advanced with ease into the stomach. Mucosa overlying the antrum and the body revealed some diffuse erythema and low-grade edema, and biopsies were obtained and sent to stain for H. pylori. Several hyperplastic-appearing polyps were noted in the body of the stomach and somewhat partially excised with the cold biopsy forceps. Pylorus was of normal contour and shape, it was intubated with ease and the scope was advanced all the way to the second portion of the duodenum. There was some patchy erythema noted in the duodenal bulb. The 2nd portion appeared to be within normal limits. The scope was then withdrawn back into the stomach and retroflexed and some of the meat bolus was noted in the fundus with some liquid debris in the cardia appeared to be within normal limits. The scope was then straightened out. It was subsequently withdrawn. The patient tolerated the procedure well. IMPRESSION: 1. Bolus of meat lodged in distal esophagus, removed piecemeal per polypectomy snare, Alfredo Net, and giant biopsy forceps. 2. Ulcerated distal esophagitis. 3. Gastritis, biopsied. Biopsies sent to stain for Helicobacter pylori. 4. Gastric polyps, body, several, hyperplastic appearing, some partially excised with the cold biopsy forceps. 5. Duodenitis, bulb, mild. PLAN: Follow up histology. Initiate Protonix 40 mg IV b.i.d. The patient will need a followup EGD in 2-3 weeks to re-evaluate and dilate esophagus. Nakul Vergara MD [facility]/MODL /[id number] cc: Oneyda Holloway MD
--- OUTSIDE RECORDS SUMMARY | 2020-01-09 20:21 | XMS REPORT | Continuity of Care Document ---
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) Active Problem 03/16/2019 [facility] Overweight (finding) Active Problem 03/16/2019 [facility] Patient encounter status (finding) Active Problem [facility] Screening status (finding) Act deb [facility] [place] Urge incontinence of urine (finding) Active Problem [facility] Urinary incontinence (finding) Resolved Problem [facility] [place] Vaccination required (finding) Active Problem [facility] [place] Weight decreased (finding) Res olved Problem [facility] [place] Hearing loss (finding) Active Problem 10/19/2018 [facility] [place] 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 Problem 10/19/2018 [facility] [place] Body mass index index 25-29 - overweight (finding) Active Problem 05/07/2018 [facility] [place] Impacted cerumen (disorder) Ac tive Problem [facility] Tuberculosis screening status (finding) Active Problem 05/07/2018 [facility] [place] Occult blood in stools (disorder) Active Problem [facility] Medications Medication Details Route Status Patient Instructions Ordering Provider Order Date Source Depo-Provera 400 mg, IM, 0 Ref ill(s) Active 09/16/2018 [facility] [place] Stool Softener 240 mg, PO, Daily, 0 Refill(s) Active 10/15/2017 [facility] cranberry oral tablet 2 tabs, BID, 0 Refill(s) Active 10/15/2017 [facility] Vitamin C 500 mg oral tablet 5 00 mg = 1 tab, PO, Daily, # 30 tab, 0 Refill(s) Active 10/15/2017 [facility] Allergies, Adverse Reactions, Alerts Substance Category Reaction Severity Reaction type Status Date Reported Comments Source No Known Medication Allergies Assertion Drug aller gy [facility] Immunizations Immunization Date Given Site Status Last Updated Comments Source influenza virus vaccine, inactivated 04/25/2016 Left Deltoid completed [facility] [place] influenza virus vaccine, inactivated 12/21/2014 Left Deltoid completed Jos[facility] [place] Hx influenza vaccine-unspecified<sup>5</sup> 02/16/2014 Right Deltoid completed GE Result Comment: fluzone (qu adrivalent) no preservative (>3 yrs.) [[id number]]. Migrated from OBS ; Data migrated from [employer] on 04/26/2015. [facility] Hx influenza vaccine-unspecified<sup>2</sup> 02/16/2014 Right Deltoid completed GE Result Comment: fluzone (quadrivalent) no preservative (>3 yrs.) [[id number]]. Migrated from OBS ; Data migrated from [employer] on 04/26/2015. [facility] [place] influenza virus vaccine, inactivated<sup>1</sup> 01/01/2013 Right Deltoid completed GE Result Comment: fluzone (>3 yrs.) [[id number]]. Migrated from OBS ; Data migrated from [employer] on 04/26/2015. [facility] influenza virus vaccine, inactivated<sup>3</sup> 01/01/2013 Right Deltoid completed GE Result Comment: fluzone (>3 yrs.) [[id number]]. Migrated from OBS ; Data migrated from [employer] on 04/26/2015. [facility] [place] influenza virus vaccine, inactivated<sup>2</sup> 02/12/2011 completed GE Result Comment: fluvirin pr eservative free (>3 yrs.) [[id number]]. Migrated from OBS ; Data migrated from [employer] on 04/26/2015. [facility] influenza virus vaccine, inactivated<sup>4</sup> 02/12/2011 completed GE Result Comment: fluvirin pr eservative free (>3 yrs.) [[id number]]. Migrated from OBS ; Data migrated from [employer] on 04/26/2015. [facility] [place] influenza virus vaccine, inactivated<sup>3</sup> 12/21/2009 completed GE Result Comment: fluvirin pr eservative free (>3 yrs.) [[id number]]. Migrated from OBS ; Data migrated from [employer] on 04/26/2015. [facility] influenza virus vaccine, inactivated<sup>5</sup> 12/21/2009 completed GE Result Comment: fluvirin pr eservative free (>3 yrs.) [[id number]]. Migrated from OBS ; Data migrated from [employer] on 04/26/2015. [facility] influenza virus vaccine, inactivated<sup>4</sup> 02/14/2009 completed GE Result Comment: fluvirin pr eservative free (>3 yrs.) [[id number]]. Migrated from OBS ; Data migrated from [employer] on 04/26/2015. [facility] influenza virus vaccine, inactivated<sup>6</sup> 02/14/2009 completed GE Result Comment: fluvirin pr eservative free (>3 yrs.) [[id number]]. Migrated from OBS ; Data migrated from [employer] on 04/26/2015. [facility] diphtheria/pertussis, acel/tetanus adult<sup>6</sup> 10/11/2008 completed GE Result Comment: boostrix [c [id number]]. Migrated from OBS ; Data migrated from [employer] on 04/26/2015. [facility] diphtheria/pertussis, acel/tetanus adult<sup>1</sup> 10/11/2008 completed GE Result Comment: boostrix [c [id number]]. Migrated from OBS ; Data migrated from [employer] on 04/26/2015. [facility] [place] Results No Data Provided for This Section Pathology Reports No Data Provided for This Section Diagnostic Reports Report Value Date Source Chest 2 views DX EXAM: Chest 2 views DX HISTORY: screening pulmonary tb COMPARISON: None The heart size is normal and the lungs are clear. There is no pleural effusion or pneumothorax. No gross skeletal abnormality. IMPRESSION: No acute abnormality. 04/30/2016 [facility] [place] Consultation Notes No Data Provided for This [...] ADM Date DC Date Status Source Outpatient [id number] MARIZOL SHAW 01/19/2015 [facility] Outpatient [id number] MARIZOL SHAW 03/11/2015 Active [facility] Outpatient [id number] MARIZOL SHAW 04/25/2016 Active [facility] [place] [facility] [id number] Marizol Shaw 04/30/2016 05/01/2016 [facility] [place] Outpatient [id number] MARIZOL SHAW 12/31/2016 Active [facility] Outpatient [id number] MARIZOL SHAW 10/15/2017 [facility] Outpatient [id number] Marizol Shaw 10/15/2017 10/16/2017 Medical [facility] Phone Message [id number] 10/17/2017 10/19/2017 Medical [facility] Outpatient [id number] Marizol Shaw 09/16/2018 [facility] Primary [facility] Outpatient [id number] Marizol Shaw 09/16/2018 09/17/2018 Medical [facility] Phone Message [id number] 10/15/2018 10/17/2018 [facility] Outpatient [id number] Marizol Shaw 10/27/2018 [facility] Outpatient [id number] Marizol Shaw 10/27/2018 10/28/2018 Medical [facility] Between Visit [id number] 10/29/2018 10/30/2018 Medical [facility] Between Visit [id number] 10/29/2018 10/30/2018 [facility] Phone Message [id number] 03/13/2019 03/15/2019 [facility] Procedures Procedure Code Date Perfomer Comments Source Screening mammography of bilateral breasts<sup>1</sup> [id number] 11/14/2018 Patient was instructed to bring all medi cations that he takes to the office so we can update his list. [facility] Removal impacted cerumen using irrigatio n/lavage, unilateral [id number] 10/15/2017 [facility] Assessment and Plan No Data Provided for [...]
--- OUTSIDE RECORDS SUMMARY | 2020-01-09 20:21 | XMS REPORT | Continuity of Care Document ---
Author Author [facility] t Organization [facility] Address [address] [place] [address] Phone Unavailable Care Team Providers Care Ballast Inspector Name Role Phone Zulay SHAW MD PCP EVGENY ALEGRE Attphys Unavailable Evette Shaw Attphys Jovanni APPLE Attphys Unavailable EVGENY ALEGRE Admphys Unavailable Payers Payer Name Policy Type Policy Number Effective Date Expiration Date Zulay melchor [employer] Medicare Replacement [id number] 2014 00:00:00 [facility] Problems Condition Name Condition Details Condition Category Status Onset Date Resolution Date Last Treatment Date Treating Clinician Comments Source Mental retardation (disorder) Mental retardation (disorder) Active 01/01/2013 Problem 10/19/2018 Data migrated from [facility] on 08/21/14. [facility] Active 2013-01-01 00:00:00 2018-10-19 00:05:13 Jace Hernandez Urinary incontinence (finding) Urinary incontinence (finding) Resolved Problem 03/16/2019 [facility] OPID Cement Problem Resolved 2019-03-16 23:32:24 Kamran Hernandez Weight decreased (finding) Roly ght decreased (finding) Resolved Problem 03/16/2019 [facility] OPID Cement Problem Resolved 2019-03-16 23:32:24 Jace Hernandez Breast neoplasm screening status (finding) Breast neoplasm screening status (finding) Active Problem 03/16/2019 [facility], OPITez [place] Problem Active 2019-03-16 23:32:24 [facility] Medical examinations/reports status (finding) Medical examinations/reports status (finding) Active Problem 03/16/2019 [facility], OPITez [place] Problem Active 2019-03-16 23:32:24 [facility] David 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) Active Problem 03/16/2019 [facility] Problem Active 2019-03-16 23:32:24 [facility] Overweight (finding) Over weight (finding) Active Problem 03/16/2019 [facility] Problem Active 2019-03-16 23:32:24 [facility] Patient encounter status (finding) Patient encounter status (finding) Active Problem 03/16/2019 [facility] Problem Active 2019-03-16 23:32:24 [facility] David Screening status (finding) Scr eening status (finding) Active Problem 03/16/2019 [facility] ROXY Salcedo Problem Ac tive 2019-03-16 23:32:24 [facility] vanessa Urge incontinence of urine (finding) Urge incontinence of urine (finding) Active Problem 03/16/2019 Medical Group Problem Active 2019-03-16 23:32:24 [facility] David Vaccination required (finding) Vaccination required (finding) Active Problem 03/16/2019 [facility] OPID Cement Problem Active 2019-03-16 23:32:24 Kamran Hernandez Hearing loss (finding) Hear ing loss (finding) Active Problem 10/19/2018 [facility] OPID Cement Problem Active 2018-10-19 00:05:13 [facility] David Contracture of joint of hand (disorder) 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 Problem 10/19/2018 [facility] OPID Cement Problem Active 2018-10-19 00:05:13 Ye Hernandez Body mass index index 25-29 - overweight (finding) Body mass index index 25-29 - overweight (finding) Active Problem 05/07/2018 [facility] OPID Cement Problem Active 2018-05-07 15: 18:54 [facility] David Impacted cerumen (disorder) Im pacted [...] Allergies DA Active U 2007-06-27 00:00: 00 [facility] No Known Drug Allergies DA Active U 2007-06-27 00:00:00 [facility] No Known Food Allergies DA Active U 2007-06-27 00:00:00 [facility] No Known Other Allergies DA Active U 2007-06-27 00:00:00 [facility] No Known Medication Allergies No Known Medication [...] Jace Hernandez Height 2018-10-27 13:07:00 167.64 cm [facility] Heart Rate 2018-10-27 13:07:00 [facility] Systolic (mm Hg) 2018-10-27 13:07:00 [facility] [place] Diastolic (mm Hg) 2018-10-27 13:07:00 [facility] Temperature Oral (F) 2018-10-27 13:07:00 97.9 F [facility] Respitory Rate 2018-10-27 13:07:00 [facility] BMI Calculated 2018-09-16 16:17:00 [facility] Weight 2018-09-16 16:17:00 [facility] Height 2018-09-16 16:17:00 167.64 cm [facility] Temperature Oral (F) 2018-09-16 16:17:00 96.8 F [facility] Respitory Rate 2018-09-16 16:17:00 [facility] [place] Heart Rate 2018-09-16 16:17:00 [facility] Systolic (mm Hg) 2018-09-16 16:17:00 Ye [facility] Diastolic (mm Hg) 2018-09-16 16:17:00 [facility] BMI Calculated 2017-10-15 16:07:00 [facility] Height 2017-10-15 16:07:00 167.64 cm [facility] Heart Rate 2017-10-15 16:07:00 [facility] Respitory Rate 2017-10-15 16:07:00 [facility] Systolic (mm Hg) 2017-10-15 16:07:00 [facility] [place] Diastolic (mm Hg) 2017-10-15 16:07:00 [facility] Temperature Oral (F) 2017-10-15 16:07:00 96.6 F [facility] Weight 2017-10-15 16:07:00 [facility] Procedures Procedure Date / Time Performed Performing Clinician [facility] e Screening mammography of bilateral breasts<sup>1</sup> 2018-10-24 3 05:00:00 [facility] Removal impacted cerumen using irrigation/lavage, unil ateral 2017-10-15 17:16:00 [facility] Encounters Start Date/Time End Date/Time Encounter Type Admission Type Attendi [facility] Care Department Encounter ID Source 2019-03-13 08:27:51 2019-03-14 23:59:59 Outpatient [facility] [id number] 2018-10-29 10:26:51 2018-10-30 10:26:51 [facility]patient [facility] [id number] 2018-10-29 10:26:26 2018-10-30 10:26:26 [facility] [id number] 2018-10-27 08:15:00 2018-10-27 23:59:59 Outpatient S Marizol goel [facility] [id number] 2018-10-15 10:18:09 2018-10-16 23:59:59 Outpatient [facility] MG [id number] 2018-09-16 11:00:00 2018-09-16 23:59:59 Outpatient S Marizol goel [facility] [id number] 2017-10-17 12:39:00 2017-10-18 23:59:59 Outpatient [facility] MG [id number] 2017-10-15 11:00:00 2017-10-15 23:59:59 Outpatient S Marizol goel [facility] [id number] 2017-10-15 11:00:00 2017-10-15 23:59:59 Outpatient S Marizol goel [facility] [id number] 2017-08-12 12:15:00 2017-08-12 18:31:00 Departed Emergency Room 1 GREG APPLE [facility] [id number] [facility] 2016-04-30 12:59:00 2016-04-30 23:59:00 Outpatient S Marizol goel [facility] [id number] Results Test Description Test Time Test Comments Results Result Comments Source CHEST SINGLE (PORTABLE) 2020-01-09 [facility]:26:[facility] 1965 Sex: [place] [address] Patient Name: ANJEL PATTERSON MR #: [id number] : 1965 Age/Sex: 54/F Req #: [id number] Adm Physician: Ordered by: DILMA BENAVIDES MD Report #: [id number] Location: ENDO Room/Bed: Procedure: [id number] DX/CHEST SINGLE (PORTABLE) Exam Date: 01/09/20 Exam Time: 1705 REPORT STATUS: Signed EXAMINATION: CHEST SINGLE (PORTABLE) INDICATION: CP, ? ESOPH FB COMPARISON: None FINDINGS: TUBES and LINES: None. LUNGS: Lungs are well inflated. There is no evidence of pneumonia or pulmonary edema. Minimal patchy bibasilar opacities, likely atelectasis. PLEURA: No pleural effusion or pneumothorax. HEART AND MEDIASTINUM: The cardiomediastinal silhouette is unremarkable. There is a 1.2 cm linear radiodensity overlying the left upper mediastinum. Atherosclerotic vascular calcifications. BONES AND SOFT TISSUES: No acute osseous lesion. Soft tissues are unremarkable. UPPER ABDOMEN: No free air under the diaphragm. IMPRESSION: A 1.2 cm linear radiodensity overlying the left upper mediastinum may represent vascular atherosclerotic calcification versus radiodense foreign body. Suggest chest CT for further evaluation. Signed by: Dr. Shawna Kirk MD on 01/09/2020 5:29 PM Dictated By: SHAWNA KIRK MD 28 Transcribed By: DAMIAN on 01/09/201728 COPY TO: DILMA BENAVIDES MD FOOT RIGHT COMPLETE [place] [address] Patient Name: ANJEL PATTERSON MR #: [id number] : 1965 Age/Sex: 51/F Req #: [id number] Adm Physician: Ordered by: GREG APPLE MD Report #: [id number] Location: ER Room/Bed: Procedure: [id number] DX/FOOT RIGHT COMPLETE Exam Date: 08/12/17 Exam [...] APPLE MD ANKLE 3 + VIEWS RIGHT [place] [address] Patient Name: ANJEL PATTERSON MR #: [id number] : 1965 Age/Sex: 51/F Req #: [id number] Adm Physician: Ordered by: GREG APPLE MD Report #: [id number] Location: ER Room/Bed: Procedure: [id number] DX/ANKLE 3 + VIEWS RIGHT Exam Date: [...] at 14:03 Dictated By: GUZMAN JIN MD 140 Transcribed By: AP on 08/12/17 140 COPY TO: GREG APPLE MD LOWER LEG RIGHT [place] [address] Patient Name: ANJEL PATTERSON MR #: [id number] : 1965 Age/Sex: 51/F Req #: [id number] Adm Physician: Ordered by: GREG APPLE MD Report #: [id number] Location: ER Room/Bed: Procedure: [id number] DX/LOWER LEG RIGHT Exam Date: 08/12/17 Exam Time: 1330 REPORT STATUS: Signed PROCEDURE: X-RAY RIGHT LOWER [...] at 14:07 Dictated By: GUZMAN JIN MD Transcribed By: AP on 08/12/171406 COPY TO: GREG APPLE MD
[2020-01-09] MEDS: DEXTROSE 5%/LACTATED RINGERS 1,000 ML IV SCH (20:30)
[2020-01-09 22:30] VITALS: BP 142/77
[2020-01-09 22:52] VITALS: BP 142/77
[2020-01-10] VITALS (9 sets, daily range): BP systolic 130–151; BP diastolic 64–90
--- NOTE | 2020-01-10 00:15 | NUR ---
PT IS TRANSFERRED FROM PACU ,FOREIGN BODY IS REMOVED FROM ESOPHAGUS . DENIES PAIN PT ALERT AND APHASIC.REPARATIONS ARE EVEN AND UNLABORED LEFT AC 18G LR AT 75 ML/HR .TELE SHOWS SINUS TACHY ORIENTED THE PT AND THE FAMILY TO THE ENVIRONMENT .PHYSICAL ASSESSMENT DONE CALL LIGHT WITH IN REACH ,CONTINUE TO MONITOR
[2020-01-10] MEDS: PIPER-TAZ 3.375 GM 50 ML IV SCH ×5 (00:30→23:45)
[2020-01-10 06:18] LABS: BASOPHILS % 0.1 % (0.0-1.0); HEMATOCRIT 41.5 % (34.2-44.1); HEMOGLOBIN 13.8 g/dL (12.0-16.0); LYMPHOCYTES # (AUTO) 1.1 (1.0-3.2); LYMPHOCYTES % 7.2 % (18.0-39.1); MEAN CORPUSCULAR HEMOGLOBIN 30.3 pg (28-32); MEAN CORPUSCULAR HGB CONC 33.3 g/dL (31-35); MONOCYTES # (AUTO) 0.5 (0.2-0.8); MONOCYTES % 3.2 % (4.4-11.3); NEUTROPHILS # (AUTO) 13.4 (2.1-6.9); PLATELET COUNT 358 x10e3/uL (140-360); RED BLOOD COUNT 4.56 x10e6/uL (3.6-5.1); RED CELL DISTRIBUTION WIDTH 12.9 % (11.7-14.4)
[2020-01-10 06:30] LABS: ALANINE AMINOTRANSFERASE 48 IU/L (0-55); ALBUMIN 3.6 g/dL (3.5-5.0); ALKALINE PHOSPHATASE 78 IU/L (40-150); ANION GAP 14.8 mmol/L (8-16); BLOOD UREA NITROGEN 9 mg/dL (7-26); BUN/CREATININE RATIO 12 (6-25); CALCIUM 8.5 mg/dL (8.4-10.2); CARBON DIOXIDE 20 mmol/L (22-29); CHLORIDE 107 mmol/L (98-107); CREATININE, SERUM 0.78 mg/dL (0.57-1.11); EST GLOMERULAR FILTRATION RATE > 60 ML/MIN (60-); GLUCOSE 179 mg/dL (74-118); POTASSIUM 3.8 mmol/L (3.5-5.1); SODIUM 138 mmol/L (136-145)
--- NOTE | 2020-01-10 06:39 | NUR ---
PT RESTED DURING THE NIGHT ,DENIES PAIN FAMILY AT THE BEDSIDE CALL LIGHT WITH IN REACH CONTINUE TO MONITOR
[2020-01-10 06:52] LABS: CREATINE KINASE MB 1.5 ng/mL (0-5.0)
--- NOTE | 2020-01-10 07:20 | NUR ---
BEDSIDE REPORT GIVEN TO THE ONCOMING NURSE
[2020-01-10 13:15] LABS: CREATINE KINASE MB 2.2 ng/mL (0-5.0)
[2020-01-10] MEDS: DEXTROSE 5%/LACTATED RINGERS 1,000 ML IV SCH ×2 (16:49→23:45)
[2020-01-10] MEDS ORDERED: PANTOPRAZOLE 40 MG 10ML VIAL IV SCH (17:00)
--- NOTE | 2020-01-10 21:50 | NUR ---
Dr Andres Vergara rounding. Notified that patient having several loose stools. Mother stating thinks it might be not eating solid food. New order for regular puree diet to start in am. and Lomotil 2 tabs po x1.
[2020-01-10] MEDS ORDERED: DIPHENOXYLATE/ATROPINE TAB PO ONE (22:00)
--- NOTE | 2020-01-10 23:50 | NUR ---
Dr Andres Vergara rounding: New consult with dietary for educations regarding puree diet for appox 10 days at home. Start puree diet in am for breakfast. If WBC WNL, dietary education provided regarding new diet and tolerating diet: f/u in office in 10 days.
[2020-01-11 05:17] VITALS: BP 124/86
[2020-01-11] MEDS: DEXTROSE 5%/LACTATED RINGERS 1,000 ML IV SCH (06:00)
[2020-01-11] MEDS: PIPER-TAZ 3.375 GM 50 ML IV SCH ×2 (06:00→14:16)
[2020-01-11 06:46] LABS: HEMATOCRIT 40.2 % (34.2-44.1); MEAN CORPUSCULAR HEMOGLOBIN 29.2 pg (28-32); MEAN CORPUSCULAR HGB CONC 32.3 g/dL (31-35); MEAN CORPUSCULAR VOLUME 90.3 fL (81-99); PLATELET COUNT 306 x10e3/uL (140-360); RED BLOOD COUNT 4.45 x10e6/uL (3.6-5.1); RED CELL DISTRIBUTION WIDTH 13.1 % (11.7-14.4)
[2020-01-11 06:51] LABS: ANION GAP 12.6 mmol/L (8-16); BLOOD UREA NITROGEN 6 mg/dL (7-26); BUN/CREATININE RATIO 7 (6-25); CALCIUM 8.1 mg/dL (8.4-10.2); CARBON DIOXIDE 23 mmol/L (22-29); CHLORIDE 107 mmol/L (98-107); CREATININE, SERUM 0.82 mg/dL (0.57-1.11); EST GLOMERULAR FILTRATION RATE > 60 ML/MIN (60-); GLUCOSE 145 mg/dL (74-118); POTASSIUM 3.6 mmol/L (3.5-5.1); SODIUM 139 mmol/L (136-145)
--- NOTE | 2020-01-11 07:15 | NUR ---
Bedside report and walking rounds completed with oncoming nurse. Patient in bed with call light within reach. No issues or concerns noted.
[2020-01-11 08:07] VITALS: BP 153/91
[2020-01-11 08:40] VITALS: BP 153/91
[2020-01-11 09:22] LABS: BAND NEUTROPHILS % (MANUAL) 5 %; EOSINOPHILS % (MANUAL) 3 % (0-7); LYMPHOCYTES % (MANUAL) 24 % (19-48); MONOCYTES % (MANUAL) 7 % (3.4-9.0)
[2020-01-11 09:23] LABS: NEUTROPHILS % (MANUAL) 51 % (40-74)
--- NOTE | 2020-01-11 10:00 | Discharge Summary ---
HOSPITAL COURSE: Ms. Michaels is a 54-year-old female with mental retardation, admitted to the emergency room with impacted foreign body in her esophagus. She was seen by GI, had EGD done to have the foreign body removed that was a piece of meat. PHYSICAL EXAMINATION: GENERAL: Today, she is awake. She is alert. VITAL SIGNS: Temperature is 98.6, blood pressure 153/91. HEART: Regular rate. LUNGS: Clear to auscultation. ABDOMEN: Soft. LABORATORY DATA: On the blood work, potassium 3.6, creatinine is 0.82, glucose 145. COVID test came back negative. White count is 11, hemoglobin 13, hematocrit 42.2. Blood cultures so far negative. Chest x-ray, no findings. ASSESSMENT: 1. Impacted esophageal foreign body. 2. Leukocytosis, resolved. 3. Mental retardation. PLAN: At present time is to discharge the patient home if it is okay with Dr. Nakul Vergara. Continue her home medication. Continue Protonix for gastritis, esophagitis and duodenitis. Followup with Dr. Vergara as directed by him in 2 to 3 weeks and follow up with me in one week. All this was discussed in detail with her mom. All questions were answered to satisfaction. Please see home medication reconciliation list. MD AMBER Sutton/VIDHI /[id number]
[2020-01-11 12:20] VITALS: BP 151/90
[2020-01-11 12:38] LABS: COLOR,URINE PINK (YELLOW)
[2020-01-11 12:39] LABS: CLARITY,URINE SL CLOUDY (CLEAR); KETONES,URINE NEGATIVE (NEGATIVE); LEUKOCYTE ESTERASE ,URINE TRACE (NEGATIVE); NITRITE,URINE NEGATIVE (NEGATIVE); PROTEIN,URINE DIPSTICK 2+ (NEGATIVE)
[2020-01-11 12:40] LABS: BILIRUBIN,URINE NEGATIVE (NEGATIVE); URINE UROBILINOGEN 0.2 mg/dL (0.2 - 1)
[2020-01-11 12:45] LABS: BACTERIA,URINE RARE /HPF; RBC,URINE 21-50 /HPF (0-5); WBC,URINE (MAN) >50 /HPF (0-5)
[2020-01-11 12:46] LABS: EPITHELIAL CELLS,URINE FEW /LPF
--- NOTE | 2020-01-11 15:22 | NUR ---
Patient received discharge order from Dr. Holloway once Dr. Arredondo cleared patient. Patient IV removed at 1500 and covered with a C/D/I dressing. Patient education given to patient' mother, Marivel. Patient education, follow up, and prescriptions were all explained and read back. Patient's mother verbalized understanding. Patient was wheeled to her mother's car at 1507. No other issues or complaints.
--- NOTE | 2020-01-11 17:00 | NUR ---
Nutrition Screen Note RD Recommendation for Physician: -Continue regular diet and pureed texture modification per MD Plan of Care: RD following, monitoring for tolerance and adequacy Nutrition reason for involvement: consult for pureed diet education Primary Diagnose(s): impacted esophageal foreign body PMH: mental retardation Ht: 66 in Wt:170 lb BMI: 27.4 kg/m2 IBW:[address] Assessment: (01/11/20) Chart reviewed. Labs and meds reviewed. Pt is a 54 year old female admitted with impacted esophageal foreign body. RD received consult for pureed diet education (pureed diet for 10 days until esophageal stretching). Spoke to family member at bedside who reports pt usually eats well but did not eat much today. Family member thinks pt had gained weight from [address] discussed and provided written materials regarding pureed diet to family member as requested. Will continue to monitor. Current Diet: regular/pureed Malnutrition Evaluation (01/11/20) The patient does not meet criteria for a specified degree of malnutrition at this time. Will re-evaluate at follow-up as appropriate. Diet Education Needs Assessment: RD received MD consult for pureed diet education Learner(s): family member Barriers: no barriers identified Cultural/Language Modifications: no cultural language modifications Readiness: eager/acceptance Method: explanation/discussion/handout Topics: pureed diet Understanding/Compliance: family member verbalized understanding Nutrition Care Level: low Signed: Nataliia Bates, ALISSA, LD
== END 2020-01-11 15:20 | disposition home or self-care (01) | DRG 394 ==
LOC: ER 16:05 → ENDO 17:35 → MED/SURG 20:00
PROVIDERS: ADMIT Internal Medicine; ATTEND Internal Medicine
PROC: 0DB68ZZ Excision of Stomach, Via Natural or Artificial Opening Endoscopic (ICD-10-PCS; 2020-01-09)
PROC: 0DB78ZX Excision of Stomach, Pylorus, Via Natural or Artificial Opening Endoscopic, Diagnostic (ICD-10-PCS; 2020-01-09)
PROC: 0DC58ZZ Extirpation of Matter from Esophagus, Via Natural or Artificial Opening Endoscopic (ICD-10-PCS; principal; 2020-01-09 18:00)
DX: T18.128A Food in esophagus causing other injury, initial encounter (principal); F73 Profound intellectual disabilities; K22.10 Ulcer of esophagus without bleeding; D72.829 Elevated white blood cell count, unspecified; K29.70 Gastritis, unspecified, without bleeding; K29.80 Duodenitis without bleeding; F71 Moderate intellectual disabilities
CPT/HCPCS: 36415; 43239; 71045; 80048; 80053; 81001; 82550; 82553; 84484; 85007; 85025; 85027; 85610; 85730; 87040; 87086; 88305; 88312; 93005; 96361; 99284; J0330; J1100; J2001; J2250; J2405; J2543; J2765; J3010; J7030

== ENCOUNTER → 2020-02-10 | Day surgery (SDC) | payer MEDICARE ==
[~2020-02-10] MED LIST changes: +ASPIRIN81 MG PO; -DEXAMETHASONE SOD PHOS INJ 4 MG/ML VIAL ONE; -EPHEDRINE SULFATE INJ 50 MG/ML VIAL ONE; -FENTANYL CITRATE/PF 100MCG/2 ML INJ ONE; -LIDOCAINE HCL 2% LOCAL INJ 5 ML SDV VIAL INJ ONE; +MELATONIN3 MG PO; -METOCLOPRAMIDE HCL 10 MG/2ML VIAL ONE; -MIDAZOLAM HCL 2 MG/2 ML VIAL ONE; +MULTIVITAMINS1 EAC7 PO; -ONDANSETRON HCL INJ 2MG/ML 2ML 2 MG/ML VIAL ONE; +PROTONIX20 MG PO; -ROCURONIUM BROMIDE 10 MG/ML 5ML VIAL IV ONE; -SEVOFLURANE INHAL SOLN 250 ML PEN BTL ONE; +SIMETHICONE 40 MG/0.6 ML BTL ONE; -SUCCINYLCHOLINE CHLORIDE 20 MG/ML 10ML VIAL ONE; +TUMERIC PO; +VITAMIN C500 MG PEG; +[UNRECOGNIZED DRUG - OTHER] PO
[2020-02-10 08:45] VITALS: BP 140/91
--- NOTE | 2020-02-10 10:12 | Operative Report ---
DATE OF PROCEDURE: 02/10/2020 SURGEON: Nakul Vergara MD PROCEDURES: 1. Esophagogastroduodenoscopy with polypectomy. 2. Esophageal dilatation. INDICATIONS FOR EGD: History of esophageal stricture, status post removal of foreign body from esophagus in the recent past. MEDICATIONS: The patient was under MAC, please see anesthesiologist's note. PROCEDURE IN DETAIL: With the patient in left lateral decubitus position, flexible fiberoptic Olympus gastroscope was introduced into the esophagus under direct visualization without any difficulty. There was some patchy erythema noted in distal esophagus. A mild stricture was noted at the GE junction that was traversed with the scope, and also the scope traversed a small sliding hiatal hernia and advanced into the stomach. Mucosa overlying the antrum and the body revealed some patchy erythema. Multiple hyperplastic-appearing polyps were noted in the body of the stomach and somewhat partially excised with the cold biopsy forceps. The pylorus was of normal contour and shape, was intubated with ease and the scope was advanced all the way to the second portion of the duodenum. The scope was then withdrawn slowly, mucosa overlying the proximal second portion and the duodenal bulb, grossly appeared to be within normal limits. The scope was then withdrawn back into the stomach and retroflexed mucosa overlying the fundus and cardia appeared to be within normal limits. The scope was then straightened out, it was subsequently withdrawn. The esophagus was dilated to size 52-Thai Gibson. The patient tolerated the procedure well. IMPRESSION: 1. Mild distal esophagitis. 2. Esophageal stricture, GE junction, dilated to size 52-Thai Gibson. 3. Small sliding hiatal hernia. 4. Gastritis, mild. 5. Gastric polyps, hyperplastic-appearing, some partially excised with the cold biopsy forceps. PLAN: Follow up histology. Continue Protonix 40 mg one p.o. q.a.m. before meals. Nakul Vergara MD [facility]/MODL /[id number] cc: Oneyda Holloway MD
== END | disposition home or self-care (01) ==
LOC: OR 05:59
PROVIDERS: ATTEND Internal Medicine Gastroenterology
DX: K22.2 Esophageal obstruction (principal); K31.7 Polyp of stomach and duodenum; K29.70 Gastritis, unspecified, without bleeding; K20.90 Esophagitis, unspecified without bleeding; K44.9 Diaphragmatic hernia without obstruction or gangrene; K59.09 Other constipation; G81.90 Hemiplegia, unspecified affecting unspecified side; R47.89 Other speech disturbances; R03.0 Elevated blood-pressure reading, without diagnosis of hypertension; Z01.812 Encounter for preprocedural laboratory examination; Z20.828 Contact with and (suspected) exposure to other viral communicable diseases; Z68.29 Body mass index [BMI] 29.0-29.9, adult
CPT/HCPCS: 36415; 43239; 43450; 84702; J2704; U0002

== ENCOUNTER → 2020-02-25 | Outpatient (CLI) | payer MEDICARE ==
[~2020-02-25] MED LIST changes: -PROPOFOL IV EMULSION 10 MG/ML 20 ML VIAL ONE; -SIMETHICONE 40 MG/0.6 ML BTL ONE
--- NOTE | 2020-02-25 17:06 | Diagnostic Imaging Report ---
Modified barium swallow, 02/25/2020. History: Dysphagia. Fluoro time: 0.13 min. Dose: 58.7 mGy (KAMILA) Discussion: Fluoroscopy was performed by gis mapping technician. A radiologist was not present for exam. Fluoroscopic observation and imaging of the oral cavity, oropharynx, and hypopharynx was performed in the lateral projection during swallowing of liquids and solids, administered by speech pathology. See speech pathologist report for findings. There is no evidence of penetration or aspiration. Signed by: Conner Villagran on 02/25/2020 5:02 PM
== END ==
LOC: DX 11:18
PROVIDERS: ATTEND Internal Medicine Gastroenterology
DX: R13.19 Other dysphagia (principal)
CPT/HCPCS: 74230; 92526; 92611; U0002

== ENCOUNTER 2020-03-15 21:16 | Emergency (ER) | payer MEDICARE ==
[~2020-03-15] VITALS: Ht 167.6 cm; Wt 77.1 kg
[2020-03-15 21:47] LABS: INR 0.91; PROTHROMBIN TIME 12.7 seconds (11.9-14.5)
[2020-03-15 21:48] LABS: PARTIAL THROMBOPLASTIN TIME 30.4 seconds (23.8-35.5)
[2020-03-15 21:55] LABS: ANION GAP 16.7 mmol/L (8-16); BLOOD UREA NITROGEN 10 mg/dL (7-26); BUN/CREATININE RATIO 12 (6-25); CALCIUM 9.7 mg/dL (8.4-10.2); CARBON DIOXIDE 22 mmol/L (22-29); CHLORIDE 103 mmol/L (98-107); CREATINE KINASE 62 IU/L (29-168); CREATININE, SERUM 0.82 mg/dL (0.57-1.11); EST GLOMERULAR FILTRATION RATE > 60 ML/MIN (60-); GLUCOSE 127 mg/dL (74-118); POTASSIUM 3.7 mmol/L (3.5-5.1); SODIUM 138 mmol/L (136-145)
[2020-03-15 22:00] LABS: BASOPHILS # (AUTO) 0.1 (0.0-0.1); BASOPHILS % 0.5 % (0.0-1.0); EOSINOPHILS # (AUTO) 0.4 (0.0-0.4); EOSINOPHILS % 3.7 % (0.0-6.0); HEMATOCRIT 44.1 % (34.2-44.1); HEMOGLOBIN 14.7 g/dL (12.0-16.0); LYMPHOCYTES # (AUTO) 2.3 (1.0-3.2); LYMPHOCYTES % 20.1 % (18.0-39.1); MEAN CORPUSCULAR HEMOGLOBIN 29.5 pg (28-32); MEAN CORPUSCULAR HGB CONC 33.3 g/dL (31-35); MEAN CORPUSCULAR VOLUME 88.6 fL (81-99); MONOCYTES # (AUTO) 0.9 (0.2-0.8); MONOCYTES % 7.7 % (4.4-11.3); NEUTROPHILS # (AUTO) 7.7 (2.1-6.9); NEUTROPHILS % 67.6 % (38.7-80.0); PLATELET COUNT 388 x10e3/uL (140-360); RED BLOOD COUNT 4.98 x10e6/uL (3.6-5.1); RED CELL DISTRIBUTION WIDTH 13.2 % (11.7-14.4)
[2020-03-16 00:15] VITALS: BP 139/91
== END 2020-03-16 00:18 | disposition home or self-care (01) ==
LOC: ER 21:32
DX: K44.9 Diaphragmatic hernia without obstruction or gangrene (principal); E04.1 Nontoxic single thyroid nodule; G40.909 Epilepsy, unspecified, not intractable, without status epilepticus; F79 Unspecified intellectual disabilities
CPT/HCPCS: 36415; 70490; 71250; 80048; 82550; 82553; 84484; 85025; 85610; 85730; 93005; 99283

== ENCOUNTER → 2020-04-22 | Outpatient (CLI) | payer MEDICARE | LOC: US 08:25 | PROVIDERS: ATTEND Internal Medicine | DX: E04.1 Nontoxic single thyroid nodule (principal) | CPT/HCPCS: 76536 ==

== ENCOUNTER 2020-08-07 21:34 | Emergency (ER) | payer MEDICARE ==
[~2020-08-07] VITALS: Ht 167.6 cm; Wt 77.1 kg
[2020-08-07 22:14] LABS: BASOPHILS # (AUTO) 0.1 (0.0-0.1); BASOPHILS % 0.4 % (0.0-1.0); EOSINOPHILS # (AUTO) 0.4 (0.0-0.4); EOSINOPHILS % 2.5 % (0.0-6.0); HEMATOCRIT 39.1 % (34.2-44.1); HEMOGLOBIN 12.8 g/dL (12.0-16.0); LYMPHOCYTES # (AUTO) 2.3 (1.0-3.2); LYMPHOCYTES % 13.8 % (18.0-39.1); MEAN CORPUSCULAR HEMOGLOBIN 28.6 pg (28-32); MEAN CORPUSCULAR HGB CONC 32.7 g/dL (31-35); MEAN CORPUSCULAR VOLUME 87.5 fL (81-99); MONOCYTES # (AUTO) 1.1 (0.2-0.8); MONOCYTES % 6.6 % (4.4-11.3); NEUTROPHILS # (AUTO) 12.6 (2.1-6.9); NEUTROPHILS % 76.3 % (38.7-80.0); PLATELET COUNT 396 x10e3/uL (140-360); RED BLOOD COUNT 4.47 x10e6/uL (3.6-5.1); RED CELL DISTRIBUTION WIDTH 13.3 % (11.7-14.4)
[2020-08-07 22:39] LABS: ALANINE AMINOTRANSFERASE 23 IU/L (0-55); ALBUMIN/GLOBULIN RATIO 1.3 (0.8-2.0); ALKALINE PHOSPHATASE 88 IU/L (40-150); ANION GAP 17.2 mmol/L (8-16); BLOOD UREA NITROGEN 12 mg/dL (7-26); BUN/CREATININE RATIO 13 (6-25); CALCIUM 9.5 mg/dL (8.4-10.2); CARBON DIOXIDE 22 mmol/L (22-29); CHLORIDE 106 mmol/L (98-107); CREATININE, SERUM 0.95 mg/dL (0.57-1.11); EST GLOMERULAR FILTRATION RATE > 60 ML/MIN (60-); GLUCOSE 224 mg/dL (74-118); POTASSIUM 4.2 mmol/L (3.5-5.1); SODIUM 141 mmol/L (136-145)
[2020-08-07] MEDS ORDERED: SODIUM CHLORIDE 0.9% 1000ML 1,000 ML IV STA (23:51)
[2020-08-08] MEDS ORDERED: SODIUM CHLORIDE 0.9% 50ML 50 ML ONE (00:27)
[2020-08-08] MEDS ORDERED: IOPAMIDOL 370 MG/ML 200 ML INFUS..BTL INJ ONE (00:28)
[2020-08-08 02:40] LABS: CLARITY,URINE CLEAR (CLEAR); COLOR,URINE YELLOW (YELLOW); KETONES,URINE NEGATIVE (NEGATIVE); LEUKOCYTE ESTERASE ,URINE 1+ (NEGATIVE); NITRITE,URINE POSITIVE (NEGATIVE); PROTEIN,URINE DIPSTICK NEGATIVE (NEGATIVE); URINE UROBILINOGEN 0.2 mg/dL (0.2 - 1)
[2020-08-08 02:52] LABS: BACTERIA,URINE MODERATE /HPF; EPITHELIAL CELLS,URINE FEW /LPF; WBC,URINE (MAN) >50 /HPF (0-5)
[2020-08-08] MEDS ORDERED: CEFTRIAXONE SOD 1 GM VIAL IV STA (03:08)
[2020-08-08] MEDS ORDERED: SODIUM CHLORIDE 0.9% 1000ML 1,000 ML IV ONE (03:15)
[2020-08-08] MEDS ORDERED: CEFTRIAXONE SOD 1 GM in SODIUM CHLORIDE 0.9% 50ML 50 ML IV STA (03:17)
[2020-08-08] MEDS ORDERED: SODIUM CHLORIDE 0.9% 1000ML 1,000 ML IV STA (03:35)
[2020-08-08] MEDS ORDERED: SODIUM CHLORIDE 0.9% 1000ML 1,000 ML ONE (03:47)
== END 2020-08-08 07:11 | disposition other institution (70) ==
LOC: ER 21:46
DX: N92.0 Excessive and frequent menstruation with regular cycle (principal); N39.0 Urinary tract infection, site not specified; G40.909 Epilepsy, unspecified, not intractable, without status epilepticus; F79 Unspecified intellectual disabilities
CPT/HCPCS: 36415; 74177; 80053; 81001; 81025; 85025; 86850; 86900; 99283; J0696; J7030; Q9967

== ENCOUNTER → 2020-12-09 | Outpatient (CLI) | payer MEDICARE | LOC: US 14:52 | PROVIDERS: ATTEND Otolaryngology | DX: E04.1 Nontoxic single thyroid nodule (principal) | CPT/HCPCS: 76536 ==

== ENCOUNTER 2021-10-24 08:00 | Emergency (ER) | payer OTHER ==
[~2021-10-24] VITALS: Ht 167.6 cm; Wt 77.1 kg
[2021-10-24] MEDS ORDERED: IBUPROFEN 600 MG TAB PO STA (08:29)
== END 2021-10-24 10:43 | disposition home or self-care (01) ==
LOC: ER 08:20
DX: S82.61XA Displaced fracture of lateral malleolus of right fibula, initial encounter for closed fracture (principal); Y93.64 Activity, baseball; Y92.320 Baseball field as the place of occurrence of the external cause; G40.909 Epilepsy, unspecified, not intractable, without status epilepticus
CPT/HCPCS: 99283

== ENCOUNTER 2023-09-12 14:17 | Inpatient (IN) | payer MEDICARE ==
[~2023-09-12] VITALS: Ht 167.6 cm; Wt 76.8 kg
[~2023-09-12 14:17] MED LIST changes: +PANTOPRAZOLE SO40 MG PO
[2023-09-12 15:06] LABS: BASOPHILS % 0.2 % (0.0-1.0); EOSINOPHILS % 0.1 % (0.0-6.0); HEMATOCRIT 39.4 % (34.2-44.1); HEMOGLOBIN 13.2 g/dL (12.0-16.0); LYMPHOCYTES # (AUTO) 1.2 (1.0-3.2); LYMPHOCYTES % 13.1 % (18.0-39.1); MEAN CORPUSCULAR HGB CONC 33.5 g/dL (31-35); MEAN CORPUSCULAR VOLUME 83.7 fL (81-99); MONOCYTES # (AUTO) 0.5 (0.2-0.8); MONOCYTES % 5.3 % (4.4-11.3); NEUTROPHILS # (AUTO) 7.3 (2.1-6.9); NEUTROPHILS % 80.9 % (38.7-80.0); PLATELET COUNT 268 x10e3/uL (140-360); RED BLOOD COUNT 4.71 x10e6/uL (3.6-5.1); RED CELL DISTRIBUTION WIDTH 13.3 % (11.7-14.4); WHITE BLOOD COUNT 9.03 x10e3/uL (4.8-10.8)
[2023-09-12 15:09] LABS: BILIRUBIN,URINE NEGATIVE (NEGATIVE); CLARITY,URINE HAZY (CLEAR); COLOR,URINE YELLOW (YELLOW); GLUCOSE, URINE NEGATIVE (NEGATIVE); KETONES,URINE TRACE (NEGATIVE); LEUKOCYTE ESTERASE ,URINE MODERATE (NEGATIVE); NITRITE,URINE POSITIVE (NEGATIVE); PH,URINE 5.5 (5 - 7); PROTEIN,URINE DIPSTICK 2+ (NEGATIVE); URINE UROBILINOGEN 0.2 mg/dL (0.2 - 1)
[2023-09-12 15:11] LABS: INR 1.04; PROTHROMBIN TIME 14.3 seconds (11.9-14.5)
[2023-09-12 15:12] LABS: PARTIAL THROMBOPLASTIN TIME 40.3 seconds (23.8-35.5)
[2023-09-12] MEDS: SODIUM CHLORIDE 0.9% 1000ML 1,000 ML IV STA ×2 (15:15→15:16)
[2023-09-12] MEDS: ACETAMINOPHEN 1000 MG/100 ML IV STA (15:15)
[2023-09-12 15:22] LABS: ALBUMIN 3.1 g/dL (3.5-5.0); ALBUMIN/GLOBULIN RATIO 0.7 (0.8-2.0); ANION GAP 18.4 mmol/L (8-16); BILIRUBIN,TOTAL 0.6 mg/dL (0.2-1.2); CALCIUM 8.6 mg/dL (8.4-10.2); CREATININE, SERUM 0.98 mg/dL (0.57-1.11); MAGNESIUM 2.1 MG/DL (1.3-2.1); TOTAL PROTEIN 7.4 g/dL (6.5-8.1)
[2023-09-12 15:23] LABS: BACTERIA,URINE MANY /HPF; EPITHELIAL CELLS,URINE RARE /LPF
[2023-09-12 15:24] LABS: POTASSIUM 3.4 mmol/L (3.5-5.1)
[2023-09-12 15:28] LABS: TROPONIN I 0.015 ng/mL (0-0.300)
[2023-09-12] MEDS ORDERED: IOPAMIDOL 370 MG/ML 100 ML INFUS..BTL INJ ONE (15:31)
[2023-09-12 16:02] VITALS: TEMP 99
[2023-09-12] MEDS: SODIUM CHLORIDE 0.9% 500ML 500 ML IV ONE (16:48)
[2023-09-12 20:23] VITALS: PULSE 86; RESP 20
[2023-09-12] MEDS: Vancomycin IV 1 GM in SODIUM CHLORIDE 0.9% 250ML 250 ML IV ONE (20:33)
[2023-09-12] MEDS: SODIUM CHLORIDE 0.9% 1000ML 1,000 ML IV SCH (20:33)
[2023-09-12] MEDS ORDERED: Vancomycin IV 1 GM VIAL ONE (20:34)
[2023-09-12] MEDS ORDERED: SODIUM CHLORIDE 0.9% 250ML 250 ML ONE (20:34)
[2023-09-12 20:59] LABS: LYMPHOCYTES % (MANUAL) 4 % (19-48); MONOCYTES % (MANUAL) 5 % (3.4-9.0); NEUTROPHILS % (MANUAL) 91 % (40-74); PLATELET ESTIMATE ADEQUATE; PLATELET MORPHOLOGY COMMENT NORMAL; RBC MORPHOLOGY COMMENT NORMAL
[2023-09-12 21:00] VITALS: BP 103/61; TEMP 98; O2SAT 99
[2023-09-12 22:00] VITALS: BP 94/72; PULSE 81; RESP 18; O2SAT 99
[2023-09-12 23:00] VITALS: PULSE 79; RESP 15; O2SAT 97
[2023-09-12 23:02] VITALS: BP 92/64; PULSE 81; RESP 19; O2SAT 100
[2023-09-13] VITALS (24 sets, daily range): BP systolic 80–145; BP diastolic 51–90; PULSE 82–107; RESP 15–24; TEMP 98.6–99.5; O2SAT 90–100
[2023-09-13 01:01] LABS: TROPONIN I 0.004 ng/mL (0-0.300)
[2023-09-13] MEDS ORDERED: MELATONIN 3 MG TAB PO PRN (02:00)
[2023-09-13] MEDS ORDERED: GUAIFENESIN/DEXTROMETHORPHAN LIQD 5 ML UDC PO PRN (02:00)
[2023-09-13] MEDS ORDERED: ACETAMINOPHEN 325 MG TAB PO PRN (02:00)
[2023-09-13] MEDS ORDERED: MAGNESIUM/ALUMINUM/SIMETHICONE 30 ML UDC PO PRN (02:00)
[2023-09-13] MEDS ORDERED: DEXTROSE 50% SYRINGE 50 ML IV PRN (02:00)
[2023-09-13] MEDS ORDERED: DOCUSATE SODIUM 100 MG CAP PO PRN (02:00)
[2023-09-13] MEDS ORDERED: HYDRALAZINE HCL 20 MG/ML VIAL IV PRN (02:00)
[2023-09-13 06:46] LABS: BASOPHILS % 0.1 % (0.0-1.0); EOSINOPHILS % 0.4 % (0.0-6.0); HEMATOCRIT 26.5 % (34.2-44.1); LYMPHOCYTES # (AUTO) 1.4 (1.0-3.2); LYMPHOCYTES % 16.6 % (18.0-39.1); MEAN CORPUSCULAR HEMOGLOBIN 28.8 pg (28-32); MEAN CORPUSCULAR VOLUME 84.7 fL (81-99); MONOCYTES # (AUTO) 0.5 (0.2-0.8); MONOCYTES % 5.7 % (4.4-11.3); NEUTROPHILS # (AUTO) 6.3 (2.1-6.9); NEUTROPHILS % 76.7 % (38.7-80.0); PLATELET COUNT 186 x10e3/uL (140-360); RED BLOOD COUNT 3.13 x10e6/uL (3.6-5.1); RED CELL DISTRIBUTION WIDTH 13.6 % (11.7-14.4); WHITE BLOOD COUNT 8.26 x10e3/uL (4.8-10.8)
[2023-09-13 07:12] LABS: TROPONIN I 0.019 ng/mL (0-0.300)
[2023-09-13] MEDS: INSULIN REGULAR, HUMAN 100 UNIT/1 ML SQ SCH (07:30)
[2023-09-13] MEDS: LEVOTHYROXINE SODIUM 112 MCG TAB PO SCH (08:38)
[2023-09-13] MEDS: MULTIVITAMINS/MINERALS TAB PO SCH (08:38)
[2023-09-13] MEDS: LACTATED RINGER'S 1,000 ML INJ SCH (08:38)
[2023-09-13 08:45] LABS: ALBUMIN 2.3 g/dL (3.5-5.0); ALBUMIN/GLOBULIN RATIO 0.7 (0.8-2.0); ANION GAP 13.1 mmol/L (8-16); BILIRUBIN,TOTAL 0.5 mg/dL (0.2-1.2); CREATININE, SERUM 0.72 mg/dL (0.57-1.11)
[2023-09-13 09:03] LABS: CALCIUM 7.2 mg/dL (8.4-10.2); POTASSIUM 3.1 mmol/L (3.5-5.1); TOTAL PROTEIN 5.4 g/dL (6.5-8.1)
[2023-09-14] VITALS (11 sets, daily range): BP systolic 103–145; BP diastolic 58–83; PULSE 89–102; RESP 15–26; TEMP 98.3–98.8; O2SAT 90–100
[2023-09-14] MEDS: METOCLOPRAMIDE HCL 10 MG/2ML VIAL IV STA (03:34)
[2023-09-14] MEDS: METOCLOPRAMIDE HCL 10 MG/2ML VIAL IV SCH (06:49)
[2023-09-14 07:05] LABS: HEMATOCRIT 30.1 % (34.2-44.1); HEMOGLOBIN 10.2 g/dL (12.0-16.0); MEAN CORPUSCULAR HEMOGLOBIN 28.6 pg (28-32); MEAN CORPUSCULAR HGB CONC 33.9 g/dL (31-35); MEAN CORPUSCULAR VOLUME 84.3 fL (81-99); PLATELET COUNT 225 x10e3/uL (140-360); RED BLOOD COUNT 3.57 x10e6/uL (3.6-5.1); RED CELL DISTRIBUTION WIDTH 13.7 % (11.7-14.4); WHITE BLOOD COUNT 9.94 x10e3/uL (4.8-10.8)
[2023-09-14 07:40] LABS: ALBUMIN 2.3 g/dL (3.5-5.0); ALBUMIN/GLOBULIN RATIO 0.7 (0.8-2.0); ANION GAP 14.1 mmol/L (8-16); BILIRUBIN,TOTAL 0.5 mg/dL (0.2-1.2); CALCIUM 7.7 mg/dL (8.4-10.2); CREATININE, SERUM 0.73 mg/dL (0.57-1.11); TOTAL PROTEIN 5.5 g/dL (6.5-8.1)
[2023-09-14 07:41] LABS: POTASSIUM 3.1 mmol/L (3.5-5.1)
[2023-09-14] MEDS: POTASSIUM CHLORIDE 20 MEQ TAB CR PO ONE (10:13)
[2023-09-14 15:30] LABS: BAND NEUTROPHILS % (MANUAL) 8 %; BASOPHILS % (MANUAL) 1 % (0-1.5); LYMPHOCYTES % (MANUAL) 15 % (19-48); MONOCYTES % (MANUAL) 4 % (3.4-9.0); NEUTROPHILS % (MANUAL) 72 % (40-74); PLATELET ESTIMATE ADEQUATE; PLATELET MORPHOLOGY COMMENT NORMAL; RBC MORPHOLOGY COMMENT NORMAL
[2023-09-15] VITALS (9 sets, daily range): BP systolic 116–140; BP diastolic 70–92; PULSE 74–92; RESP 17–19; TEMP 98.1–98.8; O2SAT 97–100
[2023-09-15 00:59] LABS: % IRON SATURATION 17 % (15-50); IRON 29 ug/dL (50-170); TOTAL IRON BINDING CAPACITY 171 ug/dL (261-478); TRANSFERRIN 122 mg/dL (180-382)
[2023-09-15 06:35] LABS: BASOPHILS % 0.1 % (0.0-1.0); EOSINOPHILS # (AUTO) 0.2 (0.0-0.4); EOSINOPHILS % 2.4 % (0.0-6.0); HEMATOCRIT 30.1 % (34.2-44.1); HEMOGLOBIN 10.1 g/dL (12.0-16.0); LYMPHOCYTES % 29.2 % (18.0-39.1); MEAN CORPUSCULAR HEMOGLOBIN 28.5 pg (28-32); MEAN CORPUSCULAR HGB CONC 33.6 g/dL (31-35); MONOCYTES # (AUTO) 0.5 (0.2-0.8); MONOCYTES % 7.3 % (4.4-11.3); NEUTROPHILS # (AUTO) 4.2 (2.1-6.9); NEUTROPHILS % 60.4 % (38.7-80.0); PLATELET COUNT 278 x10e3/uL (140-360); RED BLOOD COUNT 3.54 x10e6/uL (3.6-5.1); RED CELL DISTRIBUTION WIDTH 13.4 % (11.7-14.4); WHITE BLOOD COUNT 6.96 x10e3/uL (4.8-10.8)
[2023-09-15 07:04] LABS: ALANINE AMINOTRANSFERASE 174 IU/L (0-55); ALBUMIN 2.4 g/dL (3.5-5.0); ALBUMIN/GLOBULIN RATIO 0.7 (0.8-2.0); ALKALINE PHOSPHATASE 128 IU/L (40-150); ANION GAP 14.9 mmol/L (8-16); BILIRUBIN,TOTAL 0.4 mg/dL (0.2-1.2); BLOOD UREA NITROGEN < 5 mg/dL (7-26); CALCIUM 7.9 mg/dL (8.4-10.2); CARBON DIOXIDE 24 mmol/L (22-29); CHLORIDE 108 mmol/L (98-107); CREATININE, SERUM 0.69 mg/dL (0.57-1.11); EST GLOMERULAR FILTRATION RATE 102 ML/MIN (>=60); GLUCOSE 97 mg/dL (74-118); SODIUM 144 mmol/L (136-145); TOTAL PROTEIN 5.8 g/dL (6.5-8.1)
[2023-09-15 07:11] LABS: BUN/CREATININE RATIO 7 (6-25)
[2023-09-15 07:12] LABS: POTASSIUM 2.9 mmol/L (3.5-5.1)
[2023-09-15] MEDS: Morphine 4mg INJECTION 4 MG/ML INJ ONE (08:42)
[2023-09-15] MEDS: SODIUM CHLORIDE 0.9% 250ML 250 ML ONE (08:42)
[2023-09-15] MEDS: POTASSIUM CHLORIDE 20 MEQ TAB CR PO ONE (10:10)
[2023-09-15] MEDS: POTASSIUM CHLORIDE 20MEQ/100ML 100 ML IV ONE (10:11)
[2023-09-15] MEDS: IRON SUCROSE 100 MG in SODIUM CHLORIDE 0.9% 100 ML IV SCH (23:48)
[2023-09-16] VITALS (10 sets, daily range): BP systolic 113–156; BP diastolic 63–84; PULSE 85–96; RESP 16–18; TEMP 97.5–98.5; O2SAT 96–100
[2023-09-16 06:52] LABS: BASOPHILS % 0.5 % (0.0-1.0); EOSINOPHILS # (AUTO) 0.2 (0.0-0.4); EOSINOPHILS % 2.7 % (0.0-6.0); HEMATOCRIT 31.9 % (34.2-44.1); HEMOGLOBIN 10.6 g/dL (12.0-16.0); LYMPHOCYTES # (AUTO) 2.1 (1.0-3.2); LYMPHOCYTES % 31.4 % (18.0-39.1); MEAN CORPUSCULAR HEMOGLOBIN 28.2 pg (28-32); MEAN CORPUSCULAR HGB CONC 33.2 g/dL (31-35); MEAN CORPUSCULAR VOLUME 84.8 fL (81-99); MONOCYTES # (AUTO) 0.4 (0.2-0.8); MONOCYTES % 6.3 % (4.4-11.3); NEUTROPHILS # (AUTO) 3.9 (2.1-6.9); NEUTROPHILS % 58.2 % (38.7-80.0); PLATELET COUNT 315 x10e3/uL (140-360); RED BLOOD COUNT 3.76 x10e6/uL (3.6-5.1); RED CELL DISTRIBUTION WIDTH 13.8 % (11.7-14.4); WHITE BLOOD COUNT 6.63 x10e3/uL (4.8-10.8)
[2023-09-16 08:11] LABS: ALANINE AMINOTRANSFERASE 169 IU/L (0-55); ALBUMIN 2.7 g/dL (3.5-5.0); ALBUMIN/GLOBULIN RATIO 0.8 (0.8-2.0); ALKALINE PHOSPHATASE 112 IU/L (40-150); ANION GAP 15.5 mmol/L (8-16); BILIRUBIN,TOTAL 0.5 mg/dL (0.2-1.2); BLOOD UREA NITROGEN < 5 mg/dL (7-26); BUN/CREATININE RATIO 8 (6-25); CARBON DIOXIDE 23 mmol/L (22-29); CHLORIDE 107 mmol/L (98-107); CREATININE, SERUM 0.65 mg/dL (0.57-1.11); EST GLOMERULAR FILTRATION RATE 104 ML/MIN (>=60); GLUCOSE 105 mg/dL (74-118); POTASSIUM 3.5 mmol/L (3.5-5.1); SODIUM 142 mmol/L (136-145); TOTAL PROTEIN 6.2 g/dL (6.5-8.1)
[2023-09-16] MEDS ORDERED: BUPIVACAINE 0.25% 30ML SDV ONE (10:33)
[2023-09-16] MEDS ORDERED: LIDOCAINE HCL 2% LOCAL INJ 5 ML SDV VIAL INJ ONE (13:26)
[2023-09-16] MEDS ORDERED: ONDANSETRON HCL INJ 2MG/ML 2ML 2 MG/ML VIAL ONE (13:26)
[2023-09-16] MEDS ORDERED: FAMOTIDINE 20 MG/2 ML VIAL IV ONE (13:26)
[2023-09-16] MEDS ORDERED: SUGAMMADEX SODIUM 200 MG/2 ML VIAL IV ONE (13:26)
[2023-09-16] MEDS ORDERED: ACETAMINOPHEN 1000 MG/100 ML IV ONE (13:26)
[2023-09-16] MEDS ORDERED: PROPOFOL IV EMULSION 10 MG/ML 20 ML VIAL ONE (13:26)
[2023-09-16] MEDS ORDERED: ROCURONIUM BROMIDE 10 MG/ML 5ML VIAL IV ONE (13:26)
[2023-09-16] MEDS ORDERED: DEXAMETHASONE SOD PHOS INJ 4 MG/ML SDV ONE (13:26)
[2023-09-16] MEDS ORDERED: PHENYLEPHRINE HCL 1% 10 MG/ML VIAL ONE (13:26)
[2023-09-16] MEDS ORDERED: SEVOFLURANE INHAL SOLN 250 ML PEN BTL ONE (13:26)
[2023-09-16] MEDS ORDERED: FENTANYL CITRATE/PF 100MCG/2 ML INJ ONE (13:27)
[2023-09-16] MEDS ORDERED: HYDROCODONE/APAP 7.5MG-325MG 1 EA TAB PO PRN (15:15)
[2023-09-16] MEDS: HYDROMORPHONE 1MG/1ML INJ IV PRN (17:27)
[2023-09-16] MEDS: SODIUM CHLORIDE 0.9% 1000ML 1,000 ML IV SCH (17:31)
[2023-09-16] MEDS: ONDANSETRON HCL INJ 2MG/ML 2ML 2 MG/ML VIAL IV PRN (18:01)
[2023-09-17 03:47] VITALS: BP 137/76; PULSE 89; RESP 18; TEMP 98.2; O2SAT 97
[2023-09-17 06:15] LABS: BASOPHILS % 0.1 % (0.0-1.0); HEMATOCRIT 34.2 % (34.2-44.1); HEMOGLOBIN 10.9 g/dL (12.0-16.0); LYMPHOCYTES # (AUTO) 1.6 (1.0-3.2); LYMPHOCYTES % 15.8 % (18.0-39.1); MEAN CORPUSCULAR HEMOGLOBIN 27.7 pg (28-32); MEAN CORPUSCULAR HGB CONC 31.9 g/dL (31-35); MONOCYTES # (AUTO) 0.5 (0.2-0.8); MONOCYTES % 4.5 % (4.4-11.3); NEUTROPHILS # (AUTO) 8.1 (2.1-6.9); NEUTROPHILS % 78.8 % (38.7-80.0); PLATELET COUNT 410 x10e3/uL (140-360); RED BLOOD COUNT 3.93 x10e6/uL (3.6-5.1); RED CELL DISTRIBUTION WIDTH 13.4 % (11.7-14.4)
[2023-09-17 06:54] LABS: ALBUMIN 2.7 g/dL (3.5-5.0); ALBUMIN/GLOBULIN RATIO 0.7 (0.8-2.0); ANION GAP 15.8 mmol/L (8-16); BILIRUBIN,TOTAL 0.5 mg/dL (0.2-1.2); CALCIUM 7.8 mg/dL (8.4-10.2); CREATININE, SERUM 0.65 mg/dL (0.57-1.11); POTASSIUM 3.8 mmol/L (3.5-5.1); TOTAL PROTEIN 6.6 g/dL (6.5-8.1)
[2023-09-17 08:46] VITALS: BP 108/82; PULSE 87; RESP 17; TEMP 98.5; O2SAT 100
[2023-09-17 08:49] VITALS: BP 108/82; PULSE 87; RESP 17; TEMP 98.5; O2SAT 100
[2023-09-17 12:00] VITALS: BP 113/76; PULSE 88; RESP 17; TEMP 98.1; O2SAT 98
[2023-09-17 13:44] LABS: HEPATITIS B SURFACE AG (P) Nonreactive; HEPATITIS C ANTIBODY Nonreactive
[2023-09-17 15:29] VITALS: BP 146/74; PULSE 93; RESP 18; TEMP 98.5; O2SAT 98
== END 2023-09-17 18:41 | disposition home or self-care (01) | DRG 853 ==
LOC: ER 14:32 → ERHOLD 17:51 → ICU 20:47 → MED/SURG2 09-14 11:33
PROVIDERS: ADMIT Internal Medicine; ATTEND Internal Medicine
PROC: 3E0333Z Introduction of Anti-inflammatory into Peripheral Vein, Percutaneous Approach (ICD-10-PCS; 2023-09-12)
PROC: 02HV33Z Insertion of Infusion Device into Superior Vena Cava, Percutaneous Approach (ICD-10-PCS; 2023-09-12)
PROC: 0T9B70Z Drainage of Bladder with Drainage Device, Via Natural or Artificial Opening (ICD-10-PCS; 2023-09-16)
PROC: 0FT44ZZ Resection of Gallbladder, Percutaneous Endoscopic Approach (ICD-10-PCS; principal; 2023-09-16 13:50)
DX: A41.51 Sepsis due to Escherichia coli [E. coli] (principal); R65.21 Severe sepsis with septic shock; N39.0 Urinary tract infection, site not specified; K80.00 Calculus of gallbladder with acute cholecystitis without obstruction; Z16.24 Resistance to multiple antibiotics; E11.9 Type 2 diabetes mellitus without complications; G09 Sequelae of inflammatory diseases of central nervous system; F06.70 Mild neurocognitive disorder due to known physiological condition without behavioral disturbance; F79 Unspecified intellectual disabilities; E87.6 Hypokalemia; E89.0 Postprocedural hypothyroidism; R53.81 Other malaise; Z11.52 Encounter for screening for COVID-19; E78.5 Hyperlipidemia, unspecified; D50.9 Iron deficiency anemia, unspecified; G40.909 Epilepsy, unspecified, not intractable, without status epilepticus; K02.9 Dental caries, unspecified; Z79.82 Long term (current) use of aspirin; Z79.890 Hormone replacement therapy; Z90.710 Acquired absence of both cervix and uterus; Z91.018 Allergy to other foods
CPT/HCPCS: 36415; 36569; 71045; 74177; 76705; 78227; 80053; 81001; 82550; 82607; 82746; 82948; 83540; 83605; 83690; 83735; 84466; 84484; 85007; 85025; 85027; 85045; 85610; 85730; 87040; 87086; 87186; 87400; 88304; 93005; 99284; A9537; C1766; J1100; J1170; J1756; J2001; J2270; J2371; J2405; J2543; J2765; J3480; J7030; J7040; J7050; Q9967; U0002

== ENCOUNTER → 2023-09-25 | Outpatient (REF) | payer MEDICARE | LOC: CARD 08:40 | PROVIDERS: ATTEND Internal Medicine | DX: R60.0 Localized edema (principal) | CPT/HCPCS: 93926 ==